=== PATIENT | male | born 1950 | race Caucasian/White ===

== ENCOUNTER → 2016-05-28 | Outpatient (CLI) | payer OTHER ==
[2016-05-28 15:49] LABS: THYROID STIMULATING HORMONE 2.72 uIu/ml (0.300-4.500)
== END | disposition home or self-care (01) ==
LOC: C.LAB1850 13:03
PROVIDERS: ATTEND Internal Medicine Endocrinology, Diabetes & Metabolism
DX: E03.9 Hypothyroidism, unspecified (principal)

== ENCOUNTER 2021-04-18 17:31 | Inpatient (IN) ==
[2021-04-18] MEDS ORDERED: SODIUM CHLORIDE 0.9% 1000ML 1,000 ML IV SCH ×2 (18:15→22:59)
--- NOTE | 2021-04-18 18:21 | XRay Report ---
XR chest 1V portable CLINICAL HISTORY: SEPSIS TECHNIQUE: Single frontal radiograph of the chest was obtained. Comparison: None available at the time of this dictation. FINDINGS: No lines and tubes are seen. Calcified aortic knob is seen. Airspace opacities are seen most prominen t in the left lower lung and right upper lung. No evidence of pleural effusion or pneumothorax. IMPRESSION: Multifocal airspace opacities may represent atelectasis, pneumonia, and/or aspiration. ACT 112: Negative or not required by law. Electronically signed by: Arpit Nguyen M.D. 04/18/2021 6:20 PM
[2021-04-18 18:31] LABS: Basophils # (auto) 0.02 K/uL (0-0.2); Basophils % (auto) 0.2 %; Eosinophils # (auto) 0.01 K/uL (0-0.5); Eosinophils % (auto) 0.1 %; Hematocrit (blood only) 45.7 % (42-52); Hemoglobin 15.8 g/dL (14.0-18.0); Immature Granulocytes # (auto) 0.08 K/uL (0.00-0.02); Immature Granulocytes % (auto) 0.6 %; Lymphocytes # (auto) 1.02 K/uL (1.2-3.4); Lymphocytes % (auto) 8.1 %; Mean Corpuscular Hemoglobin 32.9 pg (25-34); Mean Corpuscular Hgb Conc 34.6 g/dL (32-36); Mean Corpuscular Volume 95.2 fL (80-100); Mean Platelet Volume 10.1 fL (7.4-10.4); Monocytes # (auto) 0.63 K/uL (0.11-0.59); Neutrophils # (auto) 10.77 K/uL (1.4-6.5); Platelet Count 498 K/uL (130-400); RDW Coefficient of Variation 13.4 % (11.5-14.5); RDW Standard Deviation 46.6 fL (36.4-46.3); White Blood Count 12.53 K/uL (4.8-10.8)
--- NOTE | 2021-04-18 18:31 | Emergency Department Note ---
History of Present Illness General Chief complaint: Cardiac Assessment Stated complaint: COVID+, ABDOMINAL PAIN, PNEUMONIA Time Seen by Provider: 04/18/21 18:03 History of Present Illness Maximum Pain Intensity: 6 70-year-old male presents to the ED with a chief complaint of shortness of breath. Patient reports that his symptoms started after his hospitalization from his gallbladder surgery on April 06. He states that he was seen there 2 days ago at [facility] and told he had Covid. He reports some nausea and a cough and a runny nose. He states that he normally uses CPAP at home. He denies being a current smoker. He reports generalized malaise and weakness. Nothing makes it better. Home Medications Medication Instructions Recorded Confirmed Type allopurinol 300 mg tablet 300 mg PO DAILY tab 01/25/19 02/01/19 History aspirin 81 mg tablet,delayed 81 mg PO DAILY tab 01/25/19 02/01/19 History release atorvastatin 20 mg tablet 20 mg PO DAILY #30 tab 01/25/19 02/01/19 History fenofibrate nanocrystallized 145 145 mg PO DAILY #90 tab 01/25/19 02/01/19 History mg tablet fexofenadine 180 mg tablet 180 mg PO DAILY tab 01/25/19 02/01/19 History fluticasone propionate 50 2 sprays INTRANASAL DAILY gm 01/25/19 02/01/19 History mcg/actuation nasal spray,suspension levothyroxine 175 mcg tablet 175 mcg PO .COMPLEX tab 01/25/19 02/01/19 History (Synthroid) metoprolol tartrate 100 mg tablet 100 mg PO BID tab 01/25/19 02/01/19 History omeprazole 20 mg tablet,delayed 20 mg PO DAILY tab 01/25/19 02/01/19 History release duloxetine 60 mg capsule,delayed 60 mg PO DAILY 02/01/19 02/01/19 History release sildenafil 100 mg tablet 100 mg PO DAILY PRN 02/01/19 02/01/19 History sulindac 200 mg tablet 200 mg PO BID 02/01/19 02/01/19 History Allergies Allergy/AdvReac Type Severity Reaction Status Date / Time No Known Drug Allergies Allergy Verified 02/01/19 11:12 Past Med/Surg History Social History Smoking Status: Never smoker Preferred Language: Ukrainian Feels Safe at Home: Yes Review of Systems A total of 10 systems reviewed and were otherwise negative Physical Exam Vital Signs Vital Signs - 24 hr 04/18/21 17:47 04/18/21 18:04 04/18/21 18:30 Temperature 37.8 C H Temperature Source Temporal Artery Scan Pulse Rate 119 H 118 H Pulse Rate from SpO2 Sensor 118 H Pulse Rhythm Regular Pulse Strength Normal Respiratory Rate 24 22 24 Respiratory Effort / Characteristics Non-Labored Spontaneous Short of Breath Respiratory Depth Normal Shallow Respiratory Pattern Regular Regular Blood Pressure 157/95 H Blood Pressure Mean 115 Blood Pressure Position Sitting Pulse Oximetry 88 L 95 92 Oxygen Delivery Method Room Air Nasal Cannula Nasal Cannula Oxygen Flow Rate 4 4 Sepsis Recent Fever Within 48 Hours No Sepsis New/Unexplained Change in Mental Status No Sepsis Action Taken by Nursing No Action Required 04/18/21 19:00 Temperature Temperature Source Pulse Rate 106 H Pulse Rate from SpO2 Sensor Pulse Rhythm Pulse Strength Respiratory Rate 24 Respiratory Effort / Characteristics Respiratory Depth Respiratory Pattern Blood Pressure Blood Pressure Mean Blood Pressure Position Pulse Oximetry 93 Oxygen Delivery Method Nasal Cannula Oxygen Flow Rate 4 Sepsis Recent Fever Within 48 Hours Sepsis New/Unexplained Change in Mental Status Sepsis Action Taken by Nursing CONSTITUTIONAL/VITAL SIGNS: Reviewed / noted above. GENERAL: Non-toxic in appearance. INTEGUMENTARY: Warm, dry, and [place]. HEAD: Normocephalic. EYES: without scleral icterus or trauma. ENT/OROPHARYNX: clear and moist. LYMPHADENOPATHY/NECK: Is supple without lymphadenopathy or meningismus. RESPIRATORY: Mild bilateral crackles to auscultation bilaterally. Mild increased work of breathing. CARDIOVASCULAR: Regular rate and rhythm. GI/ABDOMEN: Soft and nontender. No organomegaly or pulsatile mass. EXTREMITIES: Warm and well perfused. BACK: No CVA tenderness. NEUROLOGICAL: Intact without focal deficits. PSYCHIATRIC: normal affect. MUSCULOSKELETAL: Normally developed with good muscle tone. TRIAGE NURSING DOCUMENTATION REVIEWED. Medical Decision Making Differential Diagnosis The differential was considered includes acute myocardial infarction, acute coronary syndrome, myocarditis, pericarditis, pericardial effusions /tamponad, esophageal perforation, pulmonary embolism, pneumonia, pneumothorax, cardiomyopathy, congestive heart, anemia , COPD/asthma exacerbation. Medical Records Attestation: I reviewed the patient's medical records. Home Medications Current Medication List: was personally reviewed by me Laboratory Data Attestation: I reviewed the patient's lab results. Result diagrams: 04/18/21 18:08 04/18/21 19:06 Lab Results 04/18/21 04/18/21 04/18/21 Range/Units 18:08 18:08 18:08 WBC 12.53 H (4.8-10.8) K/uL RBC 4.80 (4.7-6.1) M/uL Hgb 15.8 (14.0-18.0) g/dL Hct 45.7 (42-52) % MCV 95.2 (80-100) fL MCH 32.9 (25-34) pg MCHC 34.6 (32-36) g/dL RDW Std Deviation 46.6 H (36.4-46.3) fL RDW Coeff of [place] 13.4 (11.5-14.5) % Plt Count 498 H (130-400) K/uL MPV 10.1 (7.4-10.4) fL Immature Gran % (Auto) 0.6 % Neut % (Auto) 86.0 % Lymph % (Auto) 8.1 % [place] % (Auto) 5.0 % Eos % (Auto) 0.1 % Baso % (Auto) 0.2 % Neut # (Auto) 10.77 H (1.4-6.5) K/uL Lymph # (Auto) 1.02 L (1.2-3.4) K/uL [place] # (Auto) 0.63 H (0.11-0.59) K/uL Eos # (Auto) 0.01 (0-0.5) K/uL Baso # (Auto) 0.02 (0-0.2) K/uL Immature Gran # (Auto) 0.08 H (0.00-0.02) K/uL PT Cancelled INR Cancelled APTT Cancelled PTT Ratio Cancelled Sodium 136 (136-145) mmol/L Potassium (3.5-5.1) mmol/L Chloride 105 (98-107) mmol/L Carbon Dioxide 21 (21-32) mmol/L Anion Gap 10.0 (3-11) BUN 24 H (7-18) mg/dl Creatinine 1.34 (0.6-1.4) mg/dl Est Cr Clr Drug Dosing 56.2 ml/min Est GFR ( Amer) 62.6 ml/min Est GFR (Non-Af Amer) 54.1 ml/min BUN/Creatinine Ratio 17.9 (10-20) Glucose 193 H (70-99) mg/dl Lactate (0.4-2.0) mmol/L Calcium 9.5 (8.5-10.1) mg/dl Magnesium (1.8-2.4) mg/dl Total Bilirubin 0.6 (0.2-1) mg/dl AST (15-37) U/L ALT 46 (12-78) Alkaline Phosphatase 60 (45-117) U/L Troponin I < 0.015 (0-0.045) ng/ml Total Protein 8.2 (6.4-8.2) gm/dl Albumin 2.7 L (3.4-5.0) gm/dl Globulin 5.5 H (2.5-4.0) gm/dl Albumin/Globulin Ratio 0.5 L (0.9-2) Procalcitonin (0-0.5) ng/ml SARS-CoV-2, RNA, NAAT (NEGATIVE) 04/18/21 04/18/21 04/18/21 Range/Units 18:08 18:08 18:40 WBC (4.8-10.8) K/uL RBC (4.7-6.1) M/uL Hgb (14.0-18.0) g/dL Hct (42-52) % MCV (80-100) fL MCH (25-34) pg MCHC (32-36) g/dL RDW Std Deviation (36.4-46.3) fL RDW Coeff of Lennox (11.5-14.5) % Plt Count (130-400) K/uL MPV (7.4-10.4) fL Immature Gran % (Auto) % Neut % (Auto) % Lymph % (Auto) % [place] % (Auto) % Eos % (Auto) % Baso % (Auto) % Neut # (Auto) (1.4-6.5) K/uL Lymph # (Auto) (1.2-3.4) K/uL [place] # (Auto) (0.11-0.59) K/uL Eos # (Auto) (0-0.5) K/uL Baso # (Auto) (0-0.2) K/uL Immature Gran # (Auto) (0.00-0.02) K/uL PT INR APTT PTT Ratio Sodium (136-145) mmol/L Potassium (3.5-5.1) mmol/L Chloride (98-107) mmol/L Carbon Dioxide (21-32) mmol/L Anion Gap (3-11) BUN (7-18) mg/dl Creatinine (0.6-1.4) mg/dl Est Cr Clr Drug Dosing ml/min Est GFR ( Amer) ml/min Est GFR (Non-Af Amer) ml/min BUN/Creatinine Ratio (10-20) Glucose (70-99) mg/dl Lactate 3.2 H* (0.4-2.0) mmol/L Calcium (8.5-10.1) mg/dl Magnesium (1.8-2.4) mg/dl Total Bilirubin (0.2-1) mg/dl AST (15-37) U/L ALT (12-78) Alkaline Phosphatase (45-117) U/L Troponin I (0-0.045) ng/ml Total Protein (6.4-8.2) gm/dl Albumin (3.4-5.0) gm/dl Globulin (2.5-4.0) gm/dl Albumin/Globulin Ratio (0.9-2) Procalcitonin 0.26 (0-0.5) ng/ml SARS-CoV-2, RNA, NAAT POSITIVE A* (NEGATIVE) 04/18/21 Range/Units 19:06 WBC (4.8-10.8) K/uL RBC (4.7-6.1) M/uL Hgb (14.0-18.0) g/dL Hct (42-52) % MCV (80-100) fL MCH (25-34) pg MCHC (32-36) g/dL RDW Std Deviation (36.4-46.3) fL RDW Coeff of [place]ox (11.5-14.5) % Plt Count (130-400) K/uL MPV (7.4-10.4) fL Immature Gran % (Auto) % Neut % (Auto) % Lymph % (Auto) % [place] % (Auto) % Eos % (Auto) % Baso % (Auto) % Neut # (Auto) (1.4-6.5) K/uL Lymph # (Auto) (1.2-3.4) K/uL [place] # (Auto) (0.11-0.59) K/uL Eos # (Auto) (0-0.5) K/uL Baso # (Auto) (0-0.2) K/uL Immature Gran # (Auto) (0.00-0.02) K/uL PT INR APTT PTT Ratio Sodium (136-145) mmol/L Potassium 3.1 L (3.5-5.1) mmol/L Chloride (98-107) mmol/L Carbon Dioxide (21-32) mmol/L Anion Gap (3-11) BUN (7-18) mg/dl Creatinine (0.6-1.4) mg/dl Est Cr Clr Drug Dosing ml/min Est GFR ( Amer) ml/min Est GFR (Non-Af Amer) ml/min BUN/Creatinine Ratio (10-20) Glucose (70-99) mg/dl Lactate (0.4-2.0) mmol/L Calcium (8.5-10.1) mg/dl Magnesium 1.6 L (1.8-2.4) mg/dl Total Bilirubin (0.2-1) mg/dl AST 50 H (15-37) U/L ALT (12-78) Alkaline Phosphatase (45-117) U/L Troponin I (0-0.045) ng/ml Total Protein (6.4-8.2) gm/dl Albumin (3.4-5.0) gm/dl Globulin (2.5-4.0) gm/dl Albumin/Globulin Ratio (0.9-2) Procalcitonin (0-0.5) ng/ml SARS-CoV-2, RNA, NAAT (NEGATIVE) Imaging Data Radiologist's Impression: Chest X-Ray 04/18/21 18:04 XR chest 1V portable CLINICAL HISTORY: SEPSIS TECHNIQUE: Single frontal radiograph of the chest was obtained. Comparison: None available at the time of this dictation. FINDINGS: No lines and tubes are seen. Calcified aortic knob is seen. Airspace opacities are seen most prominent in the left lower lung and right upper lung. No evidence of pleural effusion or pneumothorax. IMPRESSION: Multifocal airspace opacities may represent atelectasis, pneumonia, and/or aspiration. ACT 112: Negative or not required by law. Electronically signed by: Arpit Nguyen M.D. 04/18/2021 6:20 PM ECG Data Attestation: I personally reviewed and interpreted this ECG as follows: Additional Comments: Twelve-lead EKG: Per my interpretation showsA sinus rhythm at a rate of 112. There is a prolonged QTC. No ST elevation. No PVCs. MDM Narrative 70-year-old male presents to the ED with a chief complaint of shortness of breath and generalized malaise and weakness as well as a cough and runny nose and some nausea. Symptoms started 8 or 9 days ago. His saturations were 88% on room air. He does not use oxygen at home. Tachycardic at 119. Temperature 37.8. Chest x-ray shows bilateral pneumonia. EKG shows a sinus rhythm. White blood cell count is 12.5. BUN is 24. Lactic acid is 3.2. Troponin was negative. Covid swab is positive. Procalcitonin is negative. The patient was treated with IV fluids, IV Decadron and IV cefepime empirically. He will be seen by the hospitalist for further inpatient evaluation and care. Impression & Plan COVID-19, Pneumonia, Hypoxia Discharge Plan Visit Data Chief Complaint: Cardiac Assessment Stated Complaint: COVID+, ABDOMINAL PAIN, PNEUMONIA ED Provider: Dov Rodriguez Discharge Problem: COVID-19, Pneumonia, Hypoxia Patient Disposition: Being Evaluated by Hospitalist Forms Stand Alone Forms: My [facility] Emergency Department, Important Visit Information Prescriptions Prescriptions: No Action fexofenadine 180 mg tablet 180 mg PO DAILY RF: 0 allopurinol 300 mg tablet 300 mg PO DAILY RF: 0 aspirin 81 mg tablet,delayed release (DR/EC) 81 mg PO DAILY RF: 0 atorvastatin 20 mg tablet 20 mg PO DAILY Qty: 30 RF: 0 fenofibrate nanocrystallized 145 mg tablet 145 mg PO DAILY Qty: 90 RF: 0 fluticasone propionate 50 mcg/actuation spray,suspension 2 sprays intranasal DAILY RF: 0 metoprolol tartrate 100 mg tablet 100 mg PO BID RF: 0 omeprazole 20 mg tablet,delayed release (DR/EC) 20 mg PO DAILY RF: 0 levothyroxine [Synthroid] 175 mcg tablet 175 mcg PO .COMPLEX RF: 0 duloxetine 60 mg capsule,delayed release(DR/EC) 60 mg PO DAILY RF: 0 sildenafil 100 mg tablet 100 mg PO DAILY PRNRF: 0 sulindac 200 mg tablet 200 mg PO BID RF: 0 Referrals Referrals: Jamie Ratliff MD [Primary Care Provider] -
[2021-04-18 18:54] LABS: Alanine Aminotransferase 46 (12-78); Albumin Level 2.7 gm/dl (3.4-5.0); BUN Creatinine Ratio 17.9 (10-20); Blood Urea Nitrogen 24 mg/dl (7-18); Calcium 9.5 mg/dl (8.5-10.1); Carbon Dioxide 21 mmol/L (21-32); Chloride 105 mmol/L (98-107); Creatinine Clr Calc Pharmacy 56.2 ml/min; Est GFR (African American) 62.6 ml/min; Est GFR (Non-African American) 54.1 ml/min; Glucose 193 mg/dl (70-99); Sodium 136 mmol/L (136-145)
[2021-04-18 18:56] LABS: Albumin Globulin Ratio 0.5 (0.9-2); Alkaline Phosphatase 60 U/L (45-117); Bilirubin,Total 0.6 mg/dl (0.2-1); Globulin 5.5 gm/dl (2.5-4.0); Total Protein 8.2 gm/dl (6.4-8.2); Troponin I < 0.015 ng/ml (0-0.045)
[2021-04-18] MEDS ORDERED: CEFEPIME 2,000 MG/20 ML VIAL IV STA (19:16)
[2021-04-18 19:29] LABS: Potassium 3.1 mmol/L (3.5-5.1)
[2021-04-18] MEDS ORDERED: dexAMETHasone**PF** 10 MG/ML VIAL IV ONE (19:32)
[2021-04-18 19:34] LABS: Magnesium 1.6 mg/dl (1.8-2.4)
[2021-04-18 20:27] LABS: INR 1.1 (0.9-1.1); Partial Thromboplastin Ratio 1.2; Partial Thromboplastin Time 32.1 Seconds (21.0-31.0); Prothrombin Time 10.7 Seconds (9.0-12.0)
[2021-04-18] MEDS ORDERED: POTASSIUM CHLORIDE CRTAB 20 MEQ TABCR PO STA (21:24)
[2021-04-18] MEDS ORDERED: REMDESIVIR 200 MG in SODIUM CHLORIDE 0.9% 210 ML IV STA (21:24)
[2021-04-18] MEDS ORDERED: CONSULT PHARMACY STA (21:27)
[2021-04-18] MEDS ORDERED: MAGNESIUM SULFATE / D5W 1 GM/100 ML BAG IV STA (22:22)
[2021-04-18] MEDS ORDERED: POTASSIUM CHLORIDE / WTR 10 MEQ/100 ML PLCT IV STA (22:23)
[2021-04-18] MEDS ORDERED: METOPROLOL TARTRATE 1 MG/ML VIAL IV STA (22:24)
[2021-04-18] MEDS ORDERED: ONDANSETRON INJ 2 MG/ML 2 ML VIAL IV PRN (22:59)
[2021-04-18] MEDS ORDERED: NITROGLYCERIN SL 0.4 MG/TAB TAB SL PRN (22:59)
[2021-04-18] MEDS ORDERED: ALBUTEROL HFA 8 GM INHALER INH PRN (22:59)
[2021-04-18] MEDS ORDERED: oxyCODONE HCL IR 5 MG TAB (IMMEDIATE RELEASE) PO PRN (22:59)
[2021-04-18] MEDS ORDERED: ACETAMINOPHEN 325 MG TAB PO PRN (22:59)
--- NOTE | 2021-04-18 23:59 | History and Physical Report ---
DATE OF ADMISSION: 04/18/2021. CHIEF COMPLAINT: Shortness of breath. HISTORY OF PRESENT ILLNESS: This is a 70-year-old male with past medical history significant for type 2 diabetes, hypothyroidism, hyperlipidemia, allergic rhinitis, severe obstructive sleep apnea, atherosclerosis of aorta, hypertension, history of thoracic aortic aneurysm, history of CAD, GERD, chronic kidney disease stage III, gout arthropathy, spondylosis, depression, who comes because of shortness of breath. The patient states since 6-7 days he is having symptoms with cough, shortness of breath, nausea, vomiting, some diarrhea, mild headache, body aches, feeling weak, not getting better. He came to the ER and was hypoxic at 88% on room air. Chest x-ray shows mild COVID pneumonia and the COVID test came back positive. He was vaccinated with Vicente and Vicente vaccine in July of 2020. Did not receive a booster. He is very hard of hearing and somewhat poor historian. Denies any blurred visions. Has some runny nose, has lot of sore throat. He says appetite is down and he has some pain in the throat. Denies any chest pain, no abdominal pain. Normal bladder movements. ALLERGIES: No known drug allergies. PAST MEDICAL HISTORY: As mentioned above. PAST SURGICAL HISTORY: Colonoscopy, back surgery, open right knee surgery, partial removal of colon for perforated diverticulitis, revision of colostomy. MEDICATIONS: The patient is on allopurinol 300 mg p.o. daily, aspirin 81 mg p.o. daily, atorvastatin 40 mg p.o. daily, duloxetine 60 mg p.o. daily, fenofibrate 145 mg p.o. daily, fexofenadine 180 mg p.o. daily, Flonase 2 sprays intranasal daily, levothyroxine 175 mcg p.o. daily, metformin 1000 mg p.o. b.i.d., metoprolol tartrate 100 mg p.o. b.i.d., omeprazole 20 mg p.o. daily, oxycodone 5 mg p.o. q. 4 hours p.r.n., sulindac 200 mg p.o. b.i.d. FAMILY HISTORY: Significant for father had prostate cancer; paternal grandmother has diabetes; sister has diabetes, mother has [place], hypertension; father has stroke. SOCIAL HISTORY: . Smoked 1 pack a day for 5 years. Chews one can every 3 days. Alcohol, seems to be as per Epic two to three beers daily in the evening. No drug use. REVIEW OF SYSTEMS: As per HPI. Rest of the review of systems is negative. PHYSICAL EXAMINATION: GENERAL: The patient is of moderate build, not in acute distress. VITAL SIGNS: Temperature 37.8, pulse 89, respiratory rate 24, blood pressure 162/89, oxygen 93% on 6 liters. HEENT: No pallor, no icterus. Pupils equal, round and reactive to light. Oral mucosa moist. NECK: No JVD, no neck masses. CARDIOVASCULAR: S1 and S2 heard. Regular rate and rhythm. No murmur, no gallop. RESPIRATORY SYSTEM: Normal AP diameter. No accessory muscle use. No wheezing, no crackles. ABDOMEN: Soft, bowel sounds present, nontender, no distention. CENTRAL NERVOUS SYSTEM: Cranial nerves II-XII grossly intact, nonfocal. EXTREMITIES: No edema, no erythema. LABORATORY DATA: WBC 12.5, hemoglobin 15.8, hematocrit 45.7, platelets 498, PT 10.7, INR 1.1, APTT 32.1. Sodium 136, potassium 3.1, chloride 105, bicarbonate 21, BUN 24, creatinine 1.3, serum glucose 193. Lactate 1.9, calcium 9.5, magnesium 1.6, total bilirubin 0.6, AST 50, ALT 46, alkaline phosphatase 60. Troponin I less than 0.015. Procalcitonin 0.2. SARS-CoV-2 RNA positive. IMAGING DATA: Chest x-ray, multiple airspace opacities, might represent atelectasis, pneumonia, and/or aspiration. EKG: Sinus tachycardia at a rate of 112. Nonspecific ST abnormalities. QTc of 625. ASSESSMENT AND PLAN: This is a 70-year-old male who presents with COVID pneumonia. 1. COVID pneumonia: Symptoms are going on for like about a week. Meets criteria for remdesivir and steroids, will be started. Follow the remdesivir labs and also supportive care, oxygenation, closely monitor in the tele floor. Will follow the CRP levels in the a.m.Empiric abx Zosyn and doxycycline for any superimposed bacterial infection.( Patient is on po abx for his recent gall bladder surgery-last day of abx apr 19) 2. History of diabetes: Holding metformin. Place him on insulin sliding scale. Follow the blood sugars. The patient is on steroids. 3. History of hypothyroidism: On Synthroid. 4. History of hypertension: On metoprolol. The patient will be continued. 5. History of coronary artery disease: On beta mani, statin, and aspirin. 6.Prolonged QTc. Avoid QT prolonging drugs. Follow repeat EKG in the a.m. 6. Hypomagnesemia and hypokalemia: Will replace. 7. Gout: Continue allopurinol. 8. Hyperlipidemia: Continue statin. 9. Depression: Continue duloxetine. 10. Gastroesophageal reflux disease: Continue omeprazole. 11. Chronic kidney disease stage III: Will follow the labs. 12. Sleep apnea: On CPAP at bedtime. 13. Aortic aneurysm:On echo in March 2021, small aortic aneurysm in the ascending aorta, 4 cm. EF is 60% to 65%. 14. History of traumatic injury with lumbar compression fracture, status post spine surgery in December 2009. Continue his home pain medication. Hold sulindac. 15. 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 16. History of partial colectomy secondary to diverticulitis. 17. Alcoholism: As per Epic, drinks two to three beers daily. No hx of withdrawal as per patinet.. Place on p.o. thiamine and MVI. Monitor for any withdrawals. 18. Deep venous thrombosis prophylaxis: On Lovenox. DISPOSITION: Closely monitor in the tele floor. Level 1 full code. Expect to discharge home and follow with family doctor. Job ID: [id number] [facility]
[2021-04-19] MEDS ORDERED: CARBOHYDRATES FOR HYPOGLYCEMIA PO PRN (00:15)
[2021-04-19] MEDS ORDERED: GLUCAGON FOR INJ 1 MG VIAL IM PRN (00:15)
[2021-04-19] MEDS ORDERED: GLUCOSE 40% GEL 15 GM TUBE PO PRN (00:15)
[2021-04-19] MEDS ORDERED: DEXTROSE 50% 50 ML SYRINGE IV PRN (00:15)
[2021-04-19] MEDS ORDERED: GLUCOSE 10 TABS/TUBE PO PRN (00:15)
[2021-04-19] MEDS ORDERED: PIPERACILL/TAZOBAC CONSULT ACTIVE PRN (02:04)
[2021-04-19] MEDS: DOXYCYCLINE HYCLATE 100 MG in DEXTROSE 5% 100 ML IV SCH ×2 (02:27→12:24)
[2021-04-19] MEDS: SODIUM CHLORIDE 0.9% 10ML FLUSH IV SCH ×2 (02:27→21:27)
[2021-04-19] MEDS ORDERED: PIPERACILLIN/TAZOBACTAM 4.5 GM in DEXTROSE 5% 100 ML IV ONE (02:30)
[2021-04-19] MEDS: POTASSIUM CHLORIDE / WTR 10 MEQ/100 ML PLCT IV SCH ×2 (04:35→05:56)
[2021-04-19] MEDS: MAGNESIUM SULFATE / D5W 1 GM/100 ML BAG IV SCH ×2 (05:22→06:12)
[2021-04-19] MEDS: LEVOTHYROXINE SODIUM 175 MCG TABLET PO SCH (06:12)
[2021-04-19 06:26] LABS: Basophils # (auto) 0.02 K/uL (0-0.2); Basophils % (auto) 0.3 %; Hematocrit (blood only) 36.7 % (42-52); Hemoglobin 12.1 g/dL (14.0-18.0); Immature Granulocytes # (auto) 0.05 K/uL (0.00-0.02); Immature Granulocytes % (auto) 0.8 %; Lymphocytes # (auto) 0.68 K/uL (1.2-3.4); Lymphocytes % (auto) 10.6 %; Mean Corpuscular Hemoglobin 31.8 pg (25-34); Mean Corpuscular Volume 96.6 fL (80-100); Mean Platelet Volume 10.2 fL (7.4-10.4); Monocytes # (auto) 0.18 K/uL (0.11-0.59); Monocytes % (auto) 2.8 %; Neutrophils % (auto) 85.5 %; Platelet Count 385 K/uL (130-400); RDW Coefficient of Variation 13.7 % (11.5-14.5); RDW Standard Deviation 48.6 fL (36.4-46.3); White Blood Count 6.43 K/uL (4.8-10.8)
[2021-04-19 07:39] LABS: Albumin Level 2.4 gm/dl (3.4-5.0); BUN Creatinine Ratio 16.3 (10-20); Bilirubin Direct 0.2 mg/dl (0-0.2); Bilirubin,Total 0.4 mg/dl (0.2-1); Calcium 8.4 mg/dl (8.5-10.1); Creatinine Clr Calc Pharmacy 83.3 ml/min; Est GFR (African American) 91.4 ml/min; Est GFR (Non-African American) 78.9 ml/min; Magnesium 3.3 mg/dl (1.8-2.4); Potassium 3.4 mmol/L (3.5-5.1); Total Protein 7.2 gm/dl (6.4-8.2)
[2021-04-19 07:42] LABS: Estimated Average Glucose 140 mg/dl; Hemoglobin A1C 6.5 % (4.5-5.6)
[2021-04-19 07:50] LABS: Beta-Hydroxybutyrate 5.84 mg/dl (0.2-2.81)
[2021-04-19] MEDS ORDERED: CEFEPIME 2,000 MG in SYRINGE 0 ML IV SCH (08:00)
[2021-04-19] MEDS: FLUTICASONE FUROATE 100MCG 14 PUFFS/INHALER INH SCH (08:35)
[2021-04-19] MEDS: ATORVASTATIN 40 MG TAB PO SCH (08:36)
[2021-04-19] MEDS: CEROVITE ADV FORMULA TAB PO SCH (08:36)
[2021-04-19] MEDS: allopurinoL 300 MG TAB PO SCH (08:36)
[2021-04-19] MEDS: PANTOprazole 40 MG TAB PO SCH (08:36)
[2021-04-19] MEDS: FENOFIBRATE NANOCRYSTALLIZED 145 MG TABLET PO SCH (08:36)
[2021-04-19] MEDS: dexAMETHasone 6 MG in SYRINGE 0 ML IV SCH (08:36)
[2021-04-19] MEDS: ASPIRIN 81 MG ECTAB PO SCH (08:36)
[2021-04-19] MEDS: METOPROLOL TARTRATE 100 MG TAB PO SCH ×2 (08:36→21:26)
[2021-04-19] MEDS: ENOXAPARIN INJ 40 MG/0.4 ML SYR SQ SCH (08:36)
[2021-04-19] MEDS: FEXOFENADINE HCL 180 MG TAB PO SCH (08:36)
[2021-04-19] MEDS: THIAMINE HCL 100 MG TAB PO SCH (08:36)
[2021-04-19] MEDS: DULoxetine HCL 60 MG CAP PO SCH (08:36)
[2021-04-19] MEDS: PIPERACILLIN/TAZOBACTAM 3.375 GM in DEXTROSE 5% 100 ML IV SCH ×2 (08:37→18:06)
[2021-04-19] MEDS: FLUTICASONE PROPIONATE NA SPR 16 GM BTL SCH (08:37)
[2021-04-19] MEDS: INSULIN ASPART PER UNIT SC SCH ×4 (08:39→21:26)
--- NOTE | 2021-04-19 16:12 | Electrocardiogram Report ---
Test Reason : Blood Pressure : / mmHG Vent. Rate : 112 BPM Atrial Rate : 112 BPM P-R Int : 174 ms QRS Dur : 082 ms QT Int : 458 ms P-R-T Axes : 041 -21 022 degrees QTc Int : 625 ms Sinus tachycardia Nonspecific ST and T wave abnormality Prolonged QT Abnormal ECG No previous ECGs available Confirmed by Rhett Powell ([id number]) on 04/19/2021 4:11:55 PM Referred By: REFERRED SELF Confirmed By:Rhett Powell
--- NOTE | 2021-04-19 16:17 | Electrocardiogram Report ---
Test Reason : Blood Pressure : / mmHG Vent. Rate : 096 BPM Atrial Rate : 096 BPM P-R Int : 178 ms QRS Dur : 084 ms QT Int : 376 ms P-R-T Axes : 030 -20 -17 degrees QTc Int : 475 ms Normal sinus rhythm T wave abnormality, consider inferior ischemia T wave abnormality, consider anterior ischemia Prolonged QT Abnormal ECG When compared with ECG of 18-APR-2021 17:59, (unconfirmed) T wave inversion now evident in Inferior leads T wave inversion now evident in Anterior leads Confirmed by Rhett Powell ([id number]) on 04/19/2021 4:17:22 PM Referred By: REFERRED SELF Confirmed By:Rhett Powell
--- NOTE | 2021-04-19 17:36 | Hospitalist Progress Note ---
Date of Service April 19, 2021 Assessment & Plan (1) Pneumonia due to COVID-19 virus: Plan: New infection since his operation and discharge from the hospital between and . Hypoxia present. Started on remdesivir and dexamethasone. Continue these therapies and supportive care as needed. Patient unable to prone secondary to current surgical site. (2) Post-operative state: Plan: Recently completed a 6-day course of levofloxacin 750 mg p.o. daily and Augmentin twice daily per his surgeon, Dr. Vic Lacey-general surgeon out of [facility]. He appears to be status post laparoscopic cholecystectomy, date unknown with MARIBEL drains in place x3. reports touching base with surgeon outpatient office and they requested a follow-up on Thursday. Suggest contacting surgical office on-call doc for guidance on MARIBEL drain management versus removal. Currently there is no fever or signs of abdominal pain or infection. He remains on Zosyn and doxycycline. (3) DMII (diabetes mellitus, type 2): Plan: Chronic, A1c of 6.5 reflects good control. Continue insulin per inpatient protocol. Currently euglycemic. (4) Depression: Plan: Chronic, stable, continue duloxetine per home regimen. (5) SUMMER (obstructive sleep apnea): Plan: CPAP qHS (6) DVT prophylaxis: Plan: Lovenox Full code Disposition-to home when medically stable and hypoxia has resolved. Norma Mott DO [facility] Hospitalist Admission and Anticipated Discharge Date Admission Date: April 18, 2021 Subjective Zentz [id number] man recently hospitalized for acute cholecystitis status post laparoscopic cholecystectomy worsening symptoms admitted for COVID- pneumonia. He appears pale but reports feeling better today. Reports his breathing is improved Denies any abdominal pain I contacted his to clarify instructions from his surgeon, Vic Cornejo from [facility], [place], [place], states patient was on levofloxacin 750 mg daily x7 days, Augmentin twice da emily x7 days and that he had completed 6 days prior to admission to [facility]. She states he had a postoperative follow-up in the office by Dr. Lacey who decided to leave the drains in and sent him back for imaging and blood work at the ER. He was sent home from the [facility] and the following day was admitted to [facility]. states surgical nourished contacted her today and set up follow-up for patient for next Thursday has been made no mention of MARIBEL drains status Review of Systems Review of Systems: All systems were reviewed and negative except as indicated above. Physical Exam Physical Exam: CONSTITUTIONAL: WNWD, vitals as above, generally ill- appearing, NAD EYES: normal conjunctivae, no scleral icterus ENT: external ear and nose normal, MMM NECK: trachea midline, RESPIRATORY: clear to auscultation bilaterally, no crackles, rales or wheezes, normal respiratory effort CARDIOVASCULAR: regular rate and rhythm, S1 and 2 heard without murmurs, gallops or rubs, no JVD, no peripheral edema CHEST: inspection of chest was normal GASTROINTESTINAL: soft, nontender, protuberant, nondistended, no guarding, +MARIBEL drain x [address] with crusting around the insertion site MUSCULOSKELETAL: strength 5/5 throughout, head is normocephalic and atraumatic, neck supple, normal palpation of chest wall without tenderness SKIN: warm and dry NEUROLOGIC: CN 2-12 grossly intact, no sensory deficit, normal cognition, normal speech, no tremor PSYCHIATRIC: alert cooperative and oriented to person, place and time. Results & Data Results & Data ([facility]) Vital Signs (Past 12 Hours) Vital Signs Temp Pulse Resp BP Pulse Ox 04/19/21 15:19 36.7 C 77 20 132/86 94 04/19/21 11:59 91 04/19/21 11:46 94 04/19/21 11:08 36.9 C 72 18 146/87 H 95 04/19/21 07:20 36.9 C 86 20 145/85 H 91 Laboratory Results Short CBC 04/18/21 04/19/21 Range/Units 18:08 05:40 WBC 12.53 H 6.43 (4.8-10.8) K/uL Hgb 15.8 12.1 L D (14.0-18.0) g/dL Hct 45.7 36.7 L (42-52) % Plt Count 498 H 385 (130-400) K/uL BMP 04/18/21 04/18/21 04/19/21 18:08 19:06 05:40 Sodium 136 135 L Potassium 3.1 L 3.4 L Chloride 105 103 Carbon Dioxide 21 21 BUN 24 H 16 Creatinine 1.34 0.98 D Glucose 193 H 365 H* Calcium 9.5 8.4 L Cardiac Enzymes 04/18/21 Range/Units 18:08 Troponin I < 0.015 (0-0.045) ng/ml Liver Function 04/18/21 04/18/21 04/19/21 Range/Units 18:08 19:06 05:40 Total Bilirubin 0.6 0.4 (0.2-1) mg/dl Direct Bilirubin 0.2 (0-0.2) mg/dl AST 50 H 42 H (15-37) U/L ALT 46 34 (12-78) Alkaline Phosphatase 60 48 (45-117) U/L Albumin 2.7 L 2.4 L (3.4-5.0) gm/dl Medications Administered Current Inpatient Medications Acetaminophen (Acetaminophen 325 Mg Tab) 650 mg PO Q4H PRN PRN Reason: Pain or Fever Stop: 05/18/21 22:58 Albuterol (Albuterol Hfa 8 Gm Inhaler) 2 puffs INH Q4H PRN PRN Reason: Shortness Of Breath Or Wheezin Stop: 05/18/21 22:58 Allopurinol (Allopurinol 300 Mg Tab) 300 mg PO DAILY SABRINA Stop: 05/19/21 08:59 Last Admin: 04/19/21 08:36 Dose: 300 mg Documented by: Aspirin (Aspirin 81 Mg Ectab) 81 mg PO DAILY SABRINA Stop: 05/19/21 08:59 Last Admin: 04/19/21 08:36 Dose: 81 mg Documented by: Atorvastatin Calcium (Atorvastatin 40 Mg Tab) 40 mg PO DAILY SABRINA Stop: 05/19/21 08:59 Last Admin: 04/19/21 08:36 Dose: 40 mg Documented by: Dextrose (Dextrose 50% 50 Ml Syringe) 25 - 50 ml IV UD PRN; Protocol PRN Reason: Hypoglycemia Protocol Stop: 05/19/21 00:14 Duloxetine HCl (Duloxetine Hcl 60 Mg Cap) 60 mg PO DAILY SABRINA Stop: 05/19/21 08:59 Last Admin: 04/19/21 08:36 Dose: 60 mg Documented by: Enoxaparin Sodium (Enoxaparin Inj 40 Mg/0.4 Ml Syr) 40 mg SQ Q24H SAB[facility]INA Stop: 05/19/21 08:59 Last Admin: 04/19/21 08:36 Dose: 40 mg Documented by: Fenofibrate (Fenofibrate Nanocrystallized 145 Mg Tablet) 145 mg PO DAILY [facility] Stop: 05/19/21 08:59 Last Admin: 04/19/21 08:36 Dose: 145 mg Documented by: Fexofenadine HCl (Fexofenadine Hcl 180 Mg Tab) 180 mg PO DAILY SABRINA Stop: 05/19/21 08:59 Last Admin: 04/19/21 08:36 Dose: 180 mg Documented by: Fluticasone Furoate (Fluticasone Furoate 100mcg 14 Puffs/Inhaler) 1 puffs INH QAM S[facility]INA Stop: 05/19/21 08:59 Last Admin: 04/19/21 08:35 Dose: 1 puffs Documented by: Fluticasone Propionate (Fluticasone Propionate Na Spr 16 Gm Btl) 2 sprays NA DAILY S[facility]INA Stop: 05/19/21 08:59 Last Admin: 04/19/21 08:37 Dose: 2 sprays Documented by: Glucagon (Glucagon For Inj 1 Mg Vial) 1 mg IM UD PRN; Protocol PRN Reason: Hypoglycemia Protocol Stop: 05/19/21 00:14 Glucose (Glucose 40% Gel 15 Gm Tube) 15 - 30 gm PO UD PRN; Protocol PRN Reason: Hypoglycemia Protocol Stop: 05/19/21 00:14 Glucose (Glucose 10 Tabs/Tube) 4 - 8 tabs PO UD PRN; Protocol PRN Reason: Hypoglycemia Protocol Stop: 05/19/21 00:14 Remdesivir 100 mg/ Sodium (Chloride) 250 mls @ 250 mls/hr IV Q24H [facility]; Protocol Stop: 04/22/21 20:59 Dexamethasone 6 mg/ Syringe 1.5 mls @ 1 mls/min IV DAILY SABRINA Stop: 04/29/21 08:59 Last Admin: 04/19/21 08:36 Dose: 1 mls/min Documented by: Doxycycline Hyclate 100 mg/ (Dextrose) 110 mls @ 50 mls/hr IV Q12H [facility] Stop: 04/26/21 00:00 Last Infusion: 04/19/21 14:29 Dose: Infused Documented by: Piperacillin Sod/Tazobactam (Sod 3.375 gm/ Dextrose) 115 mls @ 28.75 mls/hr IV Q8H [facility]; Protocol Stop: 04/26/21 09:59 Last Infusion: 04/19/21 12:24 Dose: Infused Documented by: Insulin Aspart (Insulin Aspart Per Unit) 0 units SC ACHS [facility] Stop: 05/19/21 07:29 Last Admin: 04/19/21 12:20 Dose: 5 units Documented by: Levothyroxine Sodium (Levothyroxine Sodium 175 Mcg Tablet) 175 mcg PO DAILYBB [facility] Stop: 05/19/21 06:29 Last Admin: 04/19/21 06:12 Dose: 175 mcg Documented by: Metoprolol Tartrate (Metoprolol Tartrate 100 Mg Tab) 100 mg PO BID [facility] Stop: 05/19/21 08:59 Last Admin: 04/19/21 08:36 Dose: 100 mg Documented by: Miscellaneous (Carbohydrates For Hypoglycemia ) 15 - 30 gm PO UD PRN PRN Reason: Hypoglycemia Treatment Stop: 05/19/21 00:14 Miscellaneous Information (Piperacill/Tazobac Consult Active) 1 ea N/A UD PRN PRN Reason: Consult Stop: 05/19/21 02:03 Multivitamins/Minerals (Cerovite Adv Formula Tab) [facility] Stop: 05/19/21 08:59 Last Admin: 04/19/21 08:36 Dose: 1 tab Documented by: Nitroglycerin (Nitroglycerin Sl 0.4 Mg/Tab Tab) 0.4 mg SL UD PRN PRN Reason: Chest Pain Stop: 05/18/21 22:58 Oxycodone HCl (Oxycodone Hcl Ir 5 Mg Tab (Immediate Release)) 5 mg PO Q6H PRN PRN Reason: Pain Stop: 05/02/21 22:58 Pantoprazole Sodium (Pantoprazole 40 Mg Tab) 40 mg PO DAILY [facility] Stop: 05/19/21 08:59 Last Admin: 04/19/21 08:36 Dose: 40 mg Documented by: Sodium Chloride (Sodium Chloride 0.9% 10ml Flush) 30 ml IV Q24H [facility] Stop: 04/22/21 23:00 Last Admin: 04/19/21 02:27 Dose: 30 ml Documented by: Thiamine HCl (Thiamine Hcl 100 Mg Tab) 100 mg PO QAM [facility] Stop: 05/19/21 08:59 Last Admin: 04/19/21 08:36 Dose: 100 mg Documented by:
[2021-04-19] MEDS: REMDESIVIR 100 MG in SODIUM CHLORIDE 0.9% 230 ML IV SCH (21:25)
[2021-04-20] MEDS: DOXYCYCLINE HYCLATE 100 MG in DEXTROSE 5% 100 ML IV SCH ×2 (00:48→13:00)
[2021-04-20] MEDS: PIPERACILLIN/TAZOBACTAM 3.375 GM in DEXTROSE 5% 100 ML IV SCH ×3 (02:57→18:26)
[2021-04-20] MEDS: LEVOTHYROXINE SODIUM 175 MCG TABLET PO SCH (05:59)
[2021-04-20 08:20] LABS: Hematocrit (blood only) 40.3 % (42-52); Hemoglobin 13.6 g/dL (14.0-18.0); Mean Corpuscular Hemoglobin 32.4 pg (25-34); Mean Corpuscular Hgb Conc 33.7 g/dL (32-36); Platelet Count 482 K/uL (130-400); RDW Coefficient of Variation 13.6 % (11.5-14.5); RDW Standard Deviation 47.9 fL (36.4-46.3); White Blood Count 8.68 K/uL (4.8-10.8)
[2021-04-20] MEDS: dexAMETHasone 6 MG in SYRINGE 0 ML IV SCH (08:30)
[2021-04-20] MEDS: ASPIRIN 81 MG ECTAB PO SCH (08:30)
[2021-04-20] MEDS: ATORVASTATIN 40 MG TAB PO SCH (08:30)
[2021-04-20] MEDS: DULoxetine HCL 60 MG CAP PO SCH (08:30)
[2021-04-20] MEDS: ENOXAPARIN INJ 40 MG/0.4 ML SYR SQ SCH (08:31)
[2021-04-20] MEDS: FENOFIBRATE NANOCRYSTALLIZED 145 MG TABLET PO SCH (08:31)
[2021-04-20] MEDS: THIAMINE HCL 100 MG TAB PO SCH (08:31)
[2021-04-20] MEDS: FEXOFENADINE HCL 180 MG TAB PO SCH (08:31)
[2021-04-20] MEDS: CEROVITE ADV FORMULA TAB PO SCH (08:32)
[2021-04-20] MEDS: FLUTICASONE PROPIONATE NA SPR 16 GM BTL SCH (08:32)
[2021-04-20] MEDS: METOPROLOL TARTRATE 100 MG TAB PO SCH ×2 (08:32→20:30)
[2021-04-20] MEDS: FLUTICASONE FUROATE 100MCG 14 PUFFS/INHALER INH SCH (08:32)
[2021-04-20] MEDS: PANTOprazole 40 MG TAB PO SCH (08:33)
[2021-04-20] MEDS: allopurinoL 300 MG TAB PO SCH (08:33)
[2021-04-20] MEDS: INSULIN ASPART PER UNIT SC SCH ×4 (08:36→21:01)
[2021-04-20 08:38] LABS: C Reactive Protein 5.1 mg/dl (0-0.29); Calcium 8.7 mg/dl (8.5-10.1); Creatinine Clr Calc Pharmacy 81.8 ml/min; Est GFR (African American) 89.2 ml/min; Magnesium 1.9 mg/dl (1.8-2.4); Phosphorus 2.5 mg/dl (2.5-4.9); Potassium 3.6 mmol/L (3.5-5.1)
[2021-04-20] MEDS ORDERED: POTASSIUM CHLORIDE CRTAB 20 MEQ TABCR PO STA (09:53)
--- NOTE | 2021-04-20 09:53 | Hospitalist Progress Note ---
Date of Service April 20, 2021 Assessment & Plan (1) Pneumonia due to COVID-19 virus: Plan: New infection since his operation and discharge from the hospital between and . Hypoxia present. Currently on 4 L of oxygen via nasal cannula Cont. remdesivir up to 5 days and dexamethasone up to 10 days. Continue these therapies and supportive care as needed. Patient unable to prone secondary to current surgical site. (2) Post-operative state: Plan: Recently completed a 6-day course of levofloxacin 750 mg p.o. daily and Augmentin twice daily per his surgeon, Dr. Vic Lacey-general surgeon out of [facility]. Pt is s/p laparoscopic cholecystectomy, date unknown with MARIBEL drains in place x3. reports touching base with surgeon outpatient office and they requested a follow-up on Thursday. Suggest contacting surgical office on-call doc for guidance on MARIBEL drain management versus removal. Currently there is no fever or signs of abdominal pain or infection. He remains on Zosyn and doxycycline. (3) DMII (diabetes mellitus, type 2): Plan: Chronic, A1c of 6.5 reflects good control. Continue insulin per inpatient protocol. Currently euglycemic. (4) Depression: Plan: Chronic, stable, continue duloxetine per home regimen. (5) SUMMER (obstructive sleep apnea): Plan: CPAP qHS (6) DVT prophylaxis: Plan: Lovenox Full code Disposition-to home when medically stable and hypoxia has resolved. Admission and Anticipated Discharge Date Admission Date: April 18, 2021 Subjective 70 yo M recently hospitalized for acute cholecystitis s/p laparoscopic cholecyst ectomy worsening symptoms admitted for COVID-pneumonia. Patient seen in bed, in no acute distress, says that he is feeling better Reports his breathing is improved Denies any abdominal pain Denies any fevers, chills, chest pain,incr. shortness of breath Says he has loose stool once a day in the morning, appetite is fair Yesterday pt's was contacted to clarify instructions from his surgeon, Vic Cornejo from [facility], [place], [place], states patient was on levofloxacin 750 mg daily x7 days, Augmentin twice daily x7 days and that he had completed 6 days prior to admission to [facility]. She states he had a postoperative follow-up in the office by Dr. Lacey who decided to leave the drains in and sent him back for imaging and blood work to the ER. He was sent home from the [facility] and the following day was admitted to [facility]. states surgical nurse contacted her and set up follow-up for patient for next Thursday has been made no mention of MARIBEL drains status Review of Systems Review of Systems: All systems reviewed & are unremarkable except as noted in Subjective Physical Exam Physical Exam: CONSTITUTIONAL: W N/WD, in NAD, on 4 L of O2 EYES: nor mal conjunctivae, no scleral icterus ENT: external ea r and nose normal, MMM NECK:supple RESPIRATORY: chema r to auscultation bilaterally, no cr ackles, rales or w heezes, normal res piratory effort CA RDIOVASCULAR: reg ular rate and rhyt hm, S1 and 2 heard without murmurs, gallops or rubs, n o JVD, no peripher al edema CHEST: i nspection of chest was normal GASTRO INTESTINAL: soft, nontender, nondis tended, no guardin g, +MARIBEL drain x [address] with crust ing around the ins ertion site MUSCUL OSKELETAL: streng th 5/5 throughout, head is normoceph alic and atraumati c, neck supple SKI N: warm and dry N EUROLOGIC:Alert a nd oriented, answe ring questions sadaf ropriately, no fac ial asymmetry, spe ech fluent, motor extremities PSYCHI ATRIC: alert coop erative and orient ed to person, plac e and time. Results & Data Results & Data ([facility]) Vital Signs (Past 12 Hours) Vital Signs Temp Pulse Pulse Resp BP BP Pulse Ox 04/20/21 07:24 37.0 C 74 19 130/62 92 04/20/21 04:52 37.0 C 71 22 136/84 04/20/21 00:00 69 88 L 04/19/21 23:45 36.8 C 67 18 146/95 H 90 04/19/21 23:44 68 146/95 H 89 L 04/19/21 23:00 61 92 04/19/21 22:00 65 91 Laboratory Results 04/20/21 04/20/21 04/20/21 Range/Units 07:44 07:31 07:31 WBC 8.68 (4.8-10.8) K/uL RBC 4.20 L (4.7-6.1) M/uL Hgb 13.6 L (14.0-18.0) g/dL Hct 40.3 L (42-52) % MCV 96.0 (80-100) fL MCH 32.4 (25-34) pg MCHC 33.7 (32-36) g/dL RDW Std Deviation 47.9 H (36.4-46.3) fL RDW Coeff of Lennox 13.6 (11.5-14.5) % Plt Count 482 H (130-400) K/uL MPV 10.0 (7.4-10.4) fL Sodium 140 (136-145) mmol/L Potassium 3.6 (3.5-5.1) mmol/L Chloride 110 H (98-107) mmol/L Carbon Dioxide 25 (21-32) mmol/L Anion Gap 5.0 (3-11) BUN 22 H (7-18) mg/dl Creatinine 1.00 (0.6-1.4) mg/dl Est Cr Clr Drug Dosing 81.8 ml/min Est GFR ( Amer) 89.2 ml/min Est GFR (Non-Af Amer) 77.0 ml/min BUN/Creatinine Ratio 22.0 H (10-20) Glucose 111 H (70-99) mg/dl POC Glucose 103 H (70-99) mg/dl Calcium 8.7 (8.5-10.1) mg/dl Phosphorus 2.5 (2.5-4.9) mg/dl Magnesium 1.9 (1.8-2.4) mg/dl AST 47 H (15-37) U/L ALT 40 (12-78) C-Reactive Protein 5.10 H (0-0.29) mg/dl 04/19/21 04/19/21 04/19/21 Range/Units 20:17 16:34 12:01 WBC (4.8-10.8) K/uL RBC (4.7-6.1) M/uL Hgb (14.0-18.0) g/dL Hct (42-52) % MCV (80-100) fL MCH (25-34) pg MCHC (32-36) g/dL RDW Std Deviation (36.4-46.3) fL RDW Coeff of Lennox (11.5-14.5) % Plt Count (130-400) K/uL MPV (7.4-10.4) fL Sodium (136-145) mmol/L Potassium (3.5-5.1) mmol/L Chloride (98-107) mmol/L Carbon Dioxide (21-32) mmol/L Anion Gap (3-11) BUN (7-18) mg/dl Creatinine (0.6-1.4) mg/dl Est Cr Clr Drug Dosing ml/min Est GFR ( Amer) ml/min Est GFR (Non-Af Amer) ml/min BUN/Creatinine Ratio (10-20) Glucose (70-99) mg/dl POC Glucose 170 H 157 H 175 H (70-99) mg/dl Calcium (8.5-10.1) mg/dl Phosphorus (2.5-4.9) mg/dl Magnesium (1.8-2.4) mg/dl AST (15-37) U/L ALT (12-78) C-Reactive Protein (0-0.29) mg/dl Medications Administered Current Inpatient Medications Acetaminophen (Acetaminophen 325 Mg Tab) 650 mg PO Q4H PRN PRN Reason: Pain or Fever Stop: 05/18/21 22:58 Albuterol (Albuterol Hfa 8 Gm Inhaler) 2 puffs INH Q4H PRN PRN Reason: Shortness Of Breath Or Wheezin Stop: 05/18/21 22:58 Allopurinol (Allopurinol 300 Mg Tab) 300 mg PO DAILY S[facility]INA Stop: 05/19/21 08:59 Last Admin: 04/20/21 08:33 Dose: 300 mg Documented by: Aspirin (Aspirin 81 Mg Ectab) 81 mg PO DAILY S[facility]INA Stop: 05/19/21 08:59 Last Admin: 04/20/21 08:30 Dose: 81 mg Documented by: Atorvastatin Calcium (Atorvastatin 40 Mg Tab) 40 mg PO DAILY SABRINA Stop: 05/19/21 08:59 Last Admin: 04/20/21 08:30 Dose: 40 mg Documented by: Dextrose (Dextrose 50% 50 Ml Syringe) 25 - 50 ml IV UD PRN; Protocol PRN Reason: Hypoglycemia Protocol Stop: 05/19/21 00:14 Duloxetine HCl (Duloxetine Hcl 60 Mg Cap) 60 mg PO DAILY [facility] Stop: 05/19/21 08:59 Last Admin: 04/20/21 08:30 Dose: 60 mg Documented by: Enoxaparin Sodium (Enoxaparin Inj 40 Mg/0.4 Ml Syr) 40 mg SQ Q24H [facility] Stop: 05/19/21 08:59 Last Admin: 04/20/21 08:31 Dose: 40 mg Documented by: Fenofibrate (Fenofibrate Nanocrystallized 145 Mg Tablet) 145 mg PO DAILY S[facility]INA Stop: 05/19/21 08:59 Last Admin: 04/20/21 08:31 Dose: 145 mg Documented by: Fexofenadine HCl (Fexofenadine Hcl 180 Mg Tab) 180 mg PO DAILY [facility] Stop: 05/19/21 08:59 Last Admin: 04/20/21 08:31 Dose: 180 mg Documented by: Fluticasone Furoate (Fluticasone Furoate 100mcg 14 Puffs/Inhaler) 1 puffs INH QAM [facility] Stop: 05/19/21 08:59 Last Admin: 04/20/21 08:32 Dose: 1 puffs Documented by: Fluticasone Propionate (Fluticasone Propionate Na Spr 16 Gm Btl) 2 sprays NA DAILY [facility] Stop: 05/19/21 08:59 Last Admin: 04/20/21 08:32 Dose: 1 sprays Documented by: Glucagon (Glucagon For Inj 1 Mg Vial) 1 mg IM UD PRN; Protocol PRN Reason: Hypoglycemia Protocol Stop: 05/19/21 00:14 Glucose (Glucose 40% Gel 15 Gm Tube) 15 - 30 gm PO UD PRN; Protocol PRN Reason: Hypoglycemia Protocol Stop: 05/19/21 00:14 Glucose (Glucose 10 Tabs/Tube) 4 - 8 tabs PO UD PRN; Protocol PRN Reason: Hypoglycemia Protocol Stop: 05/19/21 00:14 Remdesivir 100 mg/ Sodium (Chloride) 250 mls @ 250 mls/hr IV Q24H [facility]; Protocol Stop: 04/22/21 20:59 Last Infusion: 04/20/21 03:28 Dose: Infused Documented by: Dexamethasone 6 mg/ Syringe 1.5 mls @ 1 mls/min IV DAILY [facility] Stop: 04/29/21 08:59 Last Admin: 04/20/21 08:30 Dose: 1 mls/min Documented by: Doxycycline Hyclate 100 mg/ (Dextrose) 110 mls @ 50 mls/hr IV Q12H [facility] Stop: 04/26/21 00:00 Last Infusion: 04/20/21 03:27 Dose: Infused Documented by: Piperacillin Sod/Tazobactam (Sod 3.375 gm/ Dextrose) 115 mls @ 28.75 mls/hr IV Q8H [facility]; Protocol Stop: 04/26/21 09:59 Last Infusion: 04/20/21 07:09 Dose: Infused Documented by: Insulin Aspart (Insulin Aspart Per Unit) 0 units SC ACHS [facility] Stop: 05/19/21 07:29 Last Admin: 04/20/21 08:36 Dose: 3 units Documented by: Levothyroxine Sodium (Levothyroxine Sodium 175 Mcg Tablet) 175 mcg PO DAILYBB [facility] Stop: 05/19/21 06:29 Last Admin: 04/20/21 05:59 Dose: 175 mcg Documented by: Metoprolol Tartrate (Metoprolol Tartrate 100 Mg Tab) 100 mg PO BID [facility] Stop: 05/19/21 08:59 Last Admin: 04/20/21 08:32 Dose: 100 mg Documented by: Miscellaneous (Carbohydrates For Hypoglycemia ) 15 - 30 gm PO UD PRN PRN Reason: Hypoglycemia Treatment Stop: 05/19/21 00:14 Miscellaneous Information (Piperacill/Tazobac Consult Active) 1 ea N/A UD PRN PRN Reason: Consult Stop: 05/19/21 02:03 Multivitamins/Minerals (Cerovite Adv Formula Tab) 1 tab PO QAM [facility] Stop: 05/19/21 08:59 Last Admin: 04/20/21 08:32 Dose: 1 tab Documented by: Nitroglycerin (Nitroglycerin Sl 0.4 Mg/Tab Tab) 0.4 mg SL UD PRN PRN Reason: Chest Pain Stop: 05/18/21 22:58 Pantoprazole Sodium (Pantoprazole 40 Mg Tab) 40 mg PO DAILY [facility] Stop: 05/19/21 08:59 Last Admin: 04/20/21 08:33 Dose: 40 mg Documented by: Sodium Chloride (Sodium Chloride 0.9% 10ml Flush) 30 ml IV Q24H [facility] Stop: 04/22/21 23:00 Last Admin: 04/19/21 21:27 Dose: 30 ml Documented by: Thiamine HCl (Thiamine Hcl 100 Mg Tab) [facility] Stop: 05/19/21 08:59 Last Admin: 04/20/21 08:31 Dose: 100 mg Documented by:
[2021-04-20] MEDS: ADVANCED PROBIOTIC 1250 MG CAPSULE PO SCH (18:26)
[2021-04-20] MEDS: guaiFENesin 600 MG TABCR PO SCH (20:30)
[2021-04-20] MEDS: REMDESIVIR 100 MG in SODIUM CHLORIDE 0.9% 230 ML IV SCH (20:30)
[2021-04-21] MEDS: SODIUM CHLORIDE 0.9% 10ML FLUSH IV SCH ×2 (00:40→22:37)
[2021-04-21] MEDS: DOXYCYCLINE HYCLATE 100 MG in DEXTROSE 5% 100 ML IV SCH ×2 (00:40→11:44)
[2021-04-21] MEDS: PIPERACILLIN/TAZOBACTAM 3.375 GM in DEXTROSE 5% 100 ML IV SCH ×3 (02:34→18:04)
[2021-04-21] MEDS: LEVOTHYROXINE SODIUM 175 MCG TABLET PO SCH (06:11)
[2021-04-21 06:41] LABS: Hematocrit (blood only) 41.5 % (42-52); Mean Corpuscular Hemoglobin 32.1 pg (25-34); Mean Corpuscular Hgb Conc 33.7 g/dL (32-36); Mean Corpuscular Volume 95.2 fL (80-100); Mean Platelet Volume 10.2 fL (7.4-10.4); Platelet Count 553 K/uL (130-400); RDW Coefficient of Variation 13.4 % (11.5-14.5); Red Blood Count 4.36 M/uL (4.7-6.1); White Blood Count 8.61 K/uL (4.8-10.8)
[2021-04-21 06:59] LABS: BUN Creatinine Ratio 26.6 (10-20); Calcium 8.7 mg/dl (8.5-10.1); Creatinine Clr Calc Pharmacy 96.4 ml/min; Est GFR (African American) 103.3 ml/min; Est GFR (Non-African American) 89.1 ml/min; Magnesium 1.7 mg/dl (1.8-2.4); Phosphorus 2.2 mg/dl (2.5-4.9); Potassium 3.5 mmol/L (3.5-5.1)
[2021-04-21] MEDS ORDERED: POTASSIUM CHLORIDE CRTAB 20 MEQ TABCR PO STA (07:49)
--- NOTE | 2021-04-21 07:49 | Hospitalist Progress Note ---
Date of Service April 21, 2021 Assessment & Plan (1) Pneumonia due to COVID-19 virus: Plan: New infection since his operation and discharge from the hospital between Jerzy and . Hypoxia present. Currently on 4 L of oxygen via nasal cannula Cont. remdesivir up to 5 days and dexamethasone up to 10 days. Last day of remdesivir - April 22 Continue these therapies and supportive care as needed. Patient unable to prone secondary to current surgical site. (2) Post-operative state: Plan: Recently completed a 6-day course of levofloxacin 750 mg p.o. daily and Augmentin twice daily per his surgeon, Dr. Vic Lacey-general surgeon out of [facility]. Pt is s/p laparoscopic cholecystectomy, date unknown with MARIBEL drains in place x3. reports touching base with surgeon outpatient office and they requested a follow-up on Thursday. Currently there is no fever or signs of abdominal pain or infection. He remains on Zosyn and doxycycline. Plan to contact patient's surgeon, for update, and guidance regarding MARIBEL drain management versus removal. Also records were requested last week (3) DMII (diabetes mellitus, type 2): Plan: Chronic, A1c of 6.5 reflects good control. Continue insulin per inpatient protocol. Currently euglycemic. (4) Depression: Plan: Chronic, stable, continue duloxetine per home regimen. (5) SUMMER (obstructive sleep apnea): Plan: CPAP qHS (6) DVT prophylaxis: Plan: Lovenox Full code Disposition-to home when medically stable and hypoxia has resolved. Admission and Anticipated Discharge Date Admission Date: April 18, 2021 Subjective 70 yo M recently hospitalized for acute cholecystitis s/p lap choly worsening symptoms admitted for COVID-pneumonia. Pt is laying in bed, in NAD Reports his breathing is improved Denies any abdominal pain Denies any fevers, chills, chest pain,incr. shortness of breath Pt's was contacted to clarify instructions from his surgeon, Vic Cornejo from [facility], [place], [place], states pt was on levofloxacin 750 mg daily x7 days, Augmentin twice daily x7 days and that he had completed 6 days prior to admission to [facility]. She states he had a postoperative follow-up in the office by Dr. Lacey who decided to leave the drains in and sent him back for imaging and blood work to the ER. He was sent home from the [place] ER and the following day was admitted to [facility]. states surgical nurse contacted her and set up follow-up for patient for next Thursday has been made no mention of MARIBEL drains status Will touch base with surgeon's office, also records were requested last week. Review of Systems Review of Systems: All systems reviewed & are unremarkable except as noted in Subjective Physical Exam Physical Exam: CONSTITUTIONAL: W N/WD, in NAD, on 4 L of O2 EYES: nor mal conjunctivae, no scleral icterus ENT: external ea r and nose normal, MMM NECK:supple RESPIRATORY:Somew hat diminished marjorie ath sounds, no whe ezes, normal respi ratory effort CARD IOVASCULAR: regul ar rate and rhythm , S1 and 2 heard w ithout murmurs, ga llops or rubs, no JVD, no peripheral edema CHEST: ins pection of chest w as normal GASTROIN TESTINAL: soft, n ontender, nondiste nded, no guarding, +MARIBEL drain x [address], minimal rita inage MUSCULOSKELE DEVONTE: strength 5/5 throughout, head is normocephalic a nd atraumatic, nec k supple SKIN: wa rm and dry NEUROLO GIC:Alert and ada ented, answering q uestions appropria tely, no facial as ymmetry, speech fl uent, motor extrem ities PSYCHIATRIC: alert cooperativ e and oriented to person, place and time. Results & Data Results & Data ([facility]) Vital Signs (Past 12 Hours) Vital Signs Temp Pulse Pulse Resp BP BP Pulse Ox 04/21/21 07:30 36.8 C 61 20 164/97 H 91 04/21/21 05:19 37.2 C 74 28 H 165/96 H 90 04/20/21 23:59 62 04/20/21 23:24 36.9 C 60 26 H 139/84 92 04/20/21 20:33 36.9 C 80 28 H 148/93 H 90 Laboratory Results 04/21/21 04/21/21 04/20/21 Range/Units 06:09 06:09 20:31 WBC 8.61 (4.8-10.8) K/uL RBC 4.36 L (4.7-6.1) M/uL Hgb 14.0 (14.0-18.0) g/dL Hct 41.5 L (42-52) % MCV 95.2 (80-100) fL MCH 32.1 (25-34) pg MCHC 33.7 (32-36) g/dL RDW Std Deviation 47.0 H (36.4-46.3) fL RDW Coeff of Lennox 13.4 (11.5-14.5) % Plt Count 553 H (130-400) K/uL MPV 10.2 (7.4-10.4) fL Sodium 140 (136-145) mmol/L Potassium 3.5 (3.5-5.1) mmol/L Chloride 110 H (98-107) mmol/L Carbon Dioxide 25 (21-32) mmol/L Anion Gap 6.0 (3-11) BUN 23 H (7-18) mg/dl Creatinine 0.86 (0.6-1.4) mg/dl Est Cr Clr Drug Dosing 96.4 ml/min Est GFR ( Amer) 103.3 ml/min Est GFR (Non-Af Amer) 89.1 ml/min BUN/Creatinine Ratio 26.6 H (10-20) Glucose 94 (70-99) mg/dl POC Glucose 151 H (70-99) mg/dl Calcium 8.7 (8.5-10.1) mg/dl Phosphorus 2.2 L (2.5-4.9) mg/dl Magnesium 1.7 L (1.8-2.4) mg/dl AST 42 H (15-37) U/L ALT 41 (12-78) C-Reactive Protein (0-0.29) mg/dl 04/20/21 04/20/21 04/20/21 Range/Units 16:36 12:07 07:44 WBC (4.8-10.8) K/uL RBC (4.7-6.1) M/uL Hgb (14.0-18.0) g/dL Hct (42-52) % MCV (80-100) fL MCH (25-34) pg MCHC (32-36) g/dL RDW Std Deviation (36.4-46.3) fL RDW Coeff of Lennox (11.5-14.5) % Plt Count (130-400) K/uL MPV (7.4-10.4) fL Sodium (136-145) mmol/L Potassium (3.5-5.1) mmol/L Chloride (98-107) mmol/L Carbon Dioxide (21-32) mmol/L Anion Gap (3-11) BUN (7-18) mg/dl Creatinine (0.6-1.4) mg/dl Est Cr Clr Drug Dosing ml/min Est GFR ( Amer) ml/min Est GFR (Non-Af Amer) ml/min BUN/Creatinine Ratio (10-20) Glucose (70-99) mg/dl POC Glucose 159 H 121 H 103 H (70-99) mg/dl Calcium (8.5-10.1) mg/dl Phosphorus (2.5-4.9) mg/dl Magnesium (1.8-2.4) mg/dl AST (15-37) U/L ALT (12-78) C-Reactive Protein (0-0.29) mg/dl 04/20/21 04/20/21 Range/Units 07:31 07:31 WBC 8.68 (4.8-10.8) K/uL RBC 4.20 L (4.7-6.1) M/uL Hgb 13.6 L (14.0-18.0) g/dL Hct 40.3 L (42-52) % MCV 96.0 (80-100) fL MCH 32.4 (25-34) pg MCHC 33.7 (32-36) g/dL RDW Std Deviation 47.9 H (36.4-46.3) fL RDW Coeff of Lennox 13.6 (11.5-14.5) % Plt Count 482 H (130-400) K/uL MPV 10.0 (7.4-10.4) fL Sodium 140 (136-145) mmol/L Potassium 3.6 (3.5-5.1) mmol/L Chloride 110 H (98-107) mmol/L Carbon Dioxide 25 (21-32) mmol/L Anion Gap 5.0 (3-11) BUN 22 H (7-18) mg/dl Creatinine 1.00 (0.6-1.4) mg/dl Est Cr Clr Drug Dosing 81.8 ml/min Est GFR ( Amer) 89.2 ml/min Est GFR (Non-Af Amer) 77.0 ml/min BUN/Creatinine Ratio 22.0 H (10-20) Glucose 111 H (70-99) mg/dl POC Glucose (70-99) mg/dl Calcium 8.7 (8.5-10.1) mg/dl Phosphorus 2.5 (2.5-4.9) mg/dl Magnesium 1.9 (1.8-2.4) mg/dl AST 47 H (15-37) U/L ALT 40 (12-78) C-Reactive Protein 5.10 H (0-0.29) mg/dl Medications Administered Current Inpatient Medications Acetaminophen (Acetaminophen 325 Mg Tab) 650 mg PO Q4H PRN PRN Reason: Pain or Fever Stop: 05/18/21 22:58 Albuterol (Albuterol Hfa 8 Gm Inhaler) 2 puffs INH Q4H PRN PRN Reason: Shortness Of Breath Or Wheezin Stop: 05/18/21 22:58 Allopurinol (Allopurinol 300 Mg Tab) 300 mg PO DAILY [facility] Stop: 05/19/21 08:59 Last Admin: 04/20/21 08:33 Dose: 300 mg Documented by: Aspirin (Aspirin 81 Mg Ectab) 81 mg PO DAILY [facility] Stop: 05/19/21 08:59 Last Admin: 04/20/21 08:30 Dose: 81 mg Documented by: Atorvastatin Calcium (Atorvastatin 40 Mg Tab) 40 mg PO DAILY [facility] Stop: 05/19/21 08:59 Last Admin: 04/20/21 08:30 Dose: 40 mg Documented by: Dextrose (Dextrose 50% 50 Ml Syringe) 25 - 50 ml IV UD PRN; Protocol PRN Reason: Hypoglycemia Protocol Stop: 05/19/21 00:14 Duloxetine HCl (Duloxetine Hcl 60 Mg Cap) 60 mg PO DAILY [facility] Stop: 05/19/21 08:59 Last Admin: 04/20/21 08:30 Dose: 60 mg Documented by: Enoxaparin Sodium (Enoxaparin Inj 40 Mg/0.4 Ml Syr) 40 mg SQ Q24H [facility] Stop: 05/19/21 08:59 Last Admin: 04/20/21 08:31 Dose: 40 mg Documented by: Fenofibrate (Fenofibrate Nanocrystallized 145 Mg Tablet) 145 mg PO DAILY [facility] Stop: 05/19/21 08:59 Last Admin: 04/20/21 08:31 Dose: 145 mg Documented by: Fexofenadine HCl (Fexofenadine Hcl 180 Mg Tab) 180 mg PO DAILY [facility] Stop: 05/19/21 08:59 Last Admin: 04/20/21 08:31 Dose: 180 mg Documented by: Fluticasone Furoate (Fluticasone Furoate 100mcg 14 Puffs/Inhaler) 1 puffs INH QAM [facility] Stop: 05/19/21 08:59 Last Admin: 04/20/21 08:32 Dose: 1 puffs Documented by: Fluticasone Propionate (Fluticasone Propionate Na Spr 16 Gm Btl) 2 sprays NA DAILY [facility] Stop: 05/19/21 08:59 Last Admin: 04/20/21 08:32 Dose: 1 sprays Documented by: Glucagon (Glucagon For Inj 1 Mg Vial) 1 mg IM UD PRN; Protocol PRN Reason: Hypoglycemia Protocol Stop: 05/19/21 00:14 Glucose (Glucose 40% Gel 15 Gm Tube) 15 - 30 gm PO UD PRN; Protocol PRN Reason: Hypoglycemia Protocol Stop: 05/19/21 00:14 Glucose (Glucose 10 Tabs/Tube) 4 - 8 tabs PO UD PRN; Protocol PRN Reason: Hypoglycemia Protocol Stop: 05/19/21 00:14 Guaifenesin (Guaifenesin 600 Mg Tabcr) 600 mg PO Q12 [facility] Stop: 05/20/21 20:59 Last Admin: 04/20/21 20:30 Dose: 600 mg Documented by: Remdesivir 100 mg/ Sodium (Chloride) 250 mls @ 250 mls/hr IV Q24H [facility]; Protocol Stop: 04/22/21 20:59 Last Infusion: 04/20/21 21:58 Dose: Infused Documented by: Dexamethasone 6 mg/ Syringe 1.5 mls @ 1 mls/min IV DAILY [facility] Stop: 04/29/21 08:59 Last Admin: 04/20/21 08:30 Dose: 1 mls/min Documented by: Doxycycline Hyclate 100 mg/ (Dextrose) 110 mls @ 50 mls/hr IV Q12H [facility] Stop: 04/26/21 00:00 Last Infusion: 04/21/21 02:52 Dose: Infused Documented by: Piperacillin Sod/Tazobactam (Sod 3.375 gm/ Dextrose) 115 mls @ 28.75 mls/hr IV Q8H [facility]; Protocol Stop: 04/26/21 09:59 Last Infusion: 04/21/21 06:54 Dose: Infused Documented by: Insulin Aspart (Insulin Aspart Per Unit) 0 units SC ACHS [facility] Stop: 05/19/21 07:29 Last Admin: 04/20/21 21:01 Dose: 1 units Documented by: Lactobacillus Acidoph/Casei/Rhamnos (Advanced Probiotic 1250 Mg Capsule) 2 cap PO DAILY [facility] Stop: 05/20/21 16:29 Last Admin: 04/20/21 18:26 Dose: 2 cap Documented by: Levothyroxine Sodium (Levothyroxine Sodium 175 Mcg Tablet) 175 mcg PO DAILYBB [facility] Stop: 05/19/21 06:29 Last Admin: 04/21/21 06:11 Dose: 175 mcg Documented by: Magnesium Oxide (Magnesium Oxide 400 Mg Tab) 400 mg PO QAM [facility] Stop: 05/21/21 08:59 Metoprolol Tartrate (Metoprolol Tartrate 100 Mg Tab) 100 mg PO BID [facility] Stop: 05/19/21 08:59 Last Admin: 04/20/21 20:30 Dose: 100 mg Documented by: Miscellaneous (Carbohydrates For Hypoglycemia ) 15 - 30 gm PO UD PRN PRN Reason: Hypoglycemia Treatment Stop: 05/19/21 00:14 Miscellaneous Information (Piperacill/Tazobac Consult Active) 1 ea N/A UD PRN PRN Reason: Consult Stop: 05/19/21 02:03 Multivitamins/Minerals (Cerovite Adv Formula Tab) 1 tab PO QAM [facility] Stop: 05/19/21 08:59 Last Admin: 04/20/21 08:32 Dose: 1 tab Documented by: Nitroglycerin (Nitroglycerin Sl 0.4 Mg/Tab Tab) 0.4 mg SL UD PRN PRN Reason: Chest Pain Stop: 05/18/21 22:58 Pantoprazole Sodium (Pantoprazole 40 Mg Tab) 40 mg PO DAILY [facility] Stop: 05/19/21 08:59 Last Admin: 04/20/21 08:33 Dose: 40 mg Documented by: Sodium Chloride (Sodium Chloride 0.9% 10ml Flush) 30 ml IV Q24H [facility] Stop: 04/22/21 23:00 Last Admin: 04/21/21 00:40 Dose: 30 ml Documented by: Thiamine HCl (Thiamine Hcl 100 Mg Tab) 100 mg PO QAM [facility] Stop: 05/19/21 08:59 Last Admin: 04/20/21 08:31 Dose: 100 mg Documented by:
[2021-04-21] MEDS ORDERED: MAGNESIUM SULFATE / D5W 1 GM/100 ML BAG IV ONE (08:00)
[2021-04-21] MEDS: MAGNESIUM OXIDE 400 MG TAB PO SCH (08:25)
[2021-04-21] MEDS: dexAMETHasone 6 MG in SYRINGE 0 ML IV SCH (08:25)
[2021-04-21] MEDS: ASPIRIN 81 MG ECTAB PO SCH (08:26)
[2021-04-21] MEDS: FEXOFENADINE HCL 180 MG TAB PO SCH (08:26)
[2021-04-21] MEDS: ADVANCED PROBIOTIC 1250 MG CAPSULE PO SCH (08:26)
[2021-04-21] MEDS: PANTOprazole 40 MG TAB PO SCH (08:27)
[2021-04-21] MEDS: ATORVASTATIN 40 MG TAB PO SCH (08:27)
[2021-04-21] MEDS: FENOFIBRATE NANOCRYSTALLIZED 145 MG TABLET PO SCH (08:27)
[2021-04-21] MEDS: allopurinoL 300 MG TAB PO SCH (08:27)
[2021-04-21] MEDS: DULoxetine HCL 60 MG CAP PO SCH (08:28)
[2021-04-21] MEDS: THIAMINE HCL 100 MG TAB PO SCH (08:28)
[2021-04-21] MEDS: CEROVITE ADV FORMULA TAB PO SCH (08:28)
[2021-04-21] MEDS: METOPROLOL TARTRATE 100 MG TAB PO SCH ×2 (08:28→20:48)
[2021-04-21] MEDS: ENOXAPARIN INJ 40 MG/0.4 ML SYR SQ SCH (08:29)
[2021-04-21] MEDS: FLUTICASONE PROPIONATE NA SPR 16 GM BTL SCH (08:29)
[2021-04-21] MEDS: FLUTICASONE FUROATE 100MCG 14 PUFFS/INHALER INH SCH (08:29)
[2021-04-21] MEDS: INSULIN ASPART PER UNIT SC SCH ×4 (09:16→20:17)
[2021-04-21] MEDS: guaiFENesin 600 MG TABCR PO SCH ×2 (11:45→20:48)
[2021-04-21] MEDS: REMDESIVIR 100 MG in SODIUM CHLORIDE 0.9% 230 ML IV SCH (21:22)
[2021-04-22] MEDS: DOXYCYCLINE HYCLATE 100 MG in DEXTROSE 5% 100 ML IV SCH ×3 (00:10→23:33)
[2021-04-22] MEDS: PIPERACILLIN/TAZOBACTAM 3.375 GM in DEXTROSE 5% 100 ML IV SCH ×3 (02:26→17:42)
[2021-04-22 05:37] LABS: Appearance Urine Clear (Clear); Bacteria Urine Automated Negative (Negative); Bilirubin Urine Negative (Negative); Blood Urine Negative (Negative); Color Urine Dark Yellow; Epithelial Cell Urine Auto >30 /lpf (0-5); Glucose Urine UA Negative (Negative); Ketones Urine Negative (Negative); Leukocyte Esterase Urine Trace (Negative); Nitrite Urine Negative (Negative); Protein Urine Negative (Negative); RBC Urine Automated 0-4 /hpf (0-4); Specific Gravity Urine 1.034 (1.000-1.030); Urobilinogen Urine Negative (Negative); pH Urine 5.5 (4.5-7.5)
[2021-04-22] MEDS: LEVOTHYROXINE SODIUM 175 MCG TABLET PO SCH (06:38)
[2021-04-22] MEDS: THIAMINE HCL 100 MG TAB PO SCH (09:02)
[2021-04-22] MEDS: guaiFENesin 600 MG TABCR PO SCH ×2 (09:02→20:36)
[2021-04-22] MEDS: dexAMETHasone 6 MG in SYRINGE 0 ML IV SCH (09:02)
[2021-04-22] MEDS: FENOFIBRATE NANOCRYSTALLIZED 145 MG TABLET PO SCH (09:03)
[2021-04-22] MEDS: ATORVASTATIN 40 MG TAB PO SCH (09:03)
[2021-04-22] MEDS: ASPIRIN 81 MG ECTAB PO SCH (09:03)
[2021-04-22] MEDS: PANTOprazole 40 MG TAB PO SCH (09:03)
[2021-04-22] MEDS: allopurinoL 300 MG TAB PO SCH (09:03)
[2021-04-22] MEDS: DULoxetine HCL 60 MG CAP PO SCH (09:04)
[2021-04-22] MEDS: ADVANCED PROBIOTIC 1250 MG CAPSULE PO SCH (09:04)
[2021-04-22] MEDS: FEXOFENADINE HCL 180 MG TAB PO SCH (09:04)
[2021-04-22] MEDS: CEROVITE ADV FORMULA TAB PO SCH (09:05)
[2021-04-22] MEDS: METOPROLOL TARTRATE 100 MG TAB PO SCH ×2 (09:05→20:37)
[2021-04-22] MEDS: ENOXAPARIN INJ 40 MG/0.4 ML SYR SQ SCH (09:05)
[2021-04-22] MEDS: MAGNESIUM OXIDE 400 MG TAB PO SCH (09:05)
[2021-04-22] MEDS: FLUTICASONE PROPIONATE NA SPR 16 GM BTL SCH (09:06)
[2021-04-22] MEDS: FLUTICASONE FUROATE 100MCG 14 PUFFS/INHALER INH SCH (09:06)
[2021-04-22] MEDS: INSULIN ASPART PER UNIT SC SCH ×4 (09:19→20:37)
[2021-04-22 09:54] LABS: Hematocrit (blood only) 45.4 % (42-52); Hemoglobin 15.4 g/dL (14.0-18.0); Mean Corpuscular Hemoglobin 32.2 pg (25-34); Mean Corpuscular Hgb Conc 33.9 g/dL (32-36); Mean Corpuscular Volume 94.8 fL (80-100); Mean Platelet Volume 10.2 fL (7.4-10.4); Platelet Count 571 K/uL (130-400); RDW Coefficient of Variation 13.3 % (11.5-14.5); RDW Standard Deviation 45.8 fL (36.4-46.3); Red Blood Count 4.79 M/uL (4.7-6.1); White Blood Count 8.51 K/uL (4.8-10.8)
[2021-04-22 10:25] LABS: BUN Creatinine Ratio 21.6 (10-20); Calcium 9.1 mg/dl (8.5-10.1); Creatinine Clr Calc Pharmacy 90.7 ml/min; Est GFR (Non-African American) 86.3 ml/min; Potassium 3.8 mmol/L (3.5-5.1)
--- NOTE | 2021-04-22 10:40 | Hospitalist Progress Note ---
Date of Service April 22, 2021 Assessment & Plan (1) Pneumonia due to COVID-19 virus: Plan: New infection since his operation and discharge from the hospital between Jerzy and . Hypoxia present. Currently on 4 L of oxygen via nasal cannula Cont. remdesivir up to 5 days and dexamethasone up to 10 days. Last day of remdesivir - April 22 Continue these therapies and supportive care as needed. Patient unable to prone secondary to current surgical site. (2) Post-operative state: Plan: Recently completed a 6-day course of levofloxacin 750 mg p.o. daily and Augmentin twice daily per his surgeon, Dr. Vic Lacey-general surgeon out of [facility]. Pt is s/p laparoscopic cholecystectomy, date unknown with MARIBEL drains in place x3. reports touching base with surgeon outpatient office and they requested a follow-up on Thursday. Currently there is no fever or signs of abdominal pain or infection. He remains on Zosyn and doxycycline. Plan to contact patient's surgeon, for update, and guidance regarding MARIBEL drain management versus removal. Also records were requested last week (3) DMII (diabetes mellitus, type 2): Plan: Chronic, A1c of 6.5 reflects good control. Continue insulin per inpatient protocol. Currently euglycemic. (4) Depression: Plan: Chronic, stable, continue duloxetine per home regimen. (5) SUMMER (obstructive sleep apnea): Plan: CPAP qHS (6) DVT prophylaxis: Plan: Lovenox Full code Disposition-to home when medically stable and hypoxia has resolved. Admission and Anticipated Discharge Date Admission Date: April 18, 2021 Subjective 70 yo M recently hospitalized for acute cholecystitis s/p lap choly worsening symptoms admitted for COVID-pneumonia. Pt is sitting up in bed, eating breakfast, in NAD Continues to use 4 L of supplemental oxygen Denies any abdominal pain Denies any fevers, chills, chest pain, incr. shortness of breath Pt's was contacted to clarify instructions from his surgeon, Vic Cornejo from [facility], [place], [place], states pt was on levofloxacin 750 mg daily x7 days, Augmentin twice daily x7 days and that he had completed 6 days prior to admission to [facility]. She states he had a postoperative follow-up in the office by Dr. Lacey who decided to leave the drains in and sent him back for imaging and blood work to the ER. He was sent home from the [place] ER and the following day was admitted to [facility]. states surgical nurse contacted her and set up follow-up for patient for next Thursday has been made no mention of MARIBEL drains status Will touch base with surgeon's office, also records were requested last week. Review of Systems Review of Systems: All systems reviewed & are unremarkable except as noted in Subjective Physical Exam Physical Exam: CONSTITUTIONAL: W N/WD, in NAD, on 4 L of O2 EYES: nor mal conjunctivae, no scleral icterus ENT: external ea r and nose normal, MMM NECK:supple RESPIRATORY:Somew hat diminished marjorie ath sounds, no whe ezes, normal respi ratory effort CARD IOVASCULAR: regul ar rate and rhythm , S1 and 2 heard w ithout murmurs, ga llops or rubs, no JVD, no peripheral edema CHEST: ins pection of chest w as normal GASTROIN TESTINAL: soft, n ontender, nondiste nded, no guarding, +MARIBEL drain x [address], minimal rita inage MUSCULOSKELE DEVONTE: strength 5/5 throughout, head is normocephalic a nd atraumatic, nec k supple SKIN: wa rm and dry NEUROLO GIC:Alert and ada ented, answering q uestions appropria tely, no facial as ymmetry, speech fl uent, motor extrem ities PSYCHIATRIC: alert cooperativ e and oriented to person, place and time. Results & Data Results & Data ([facility]) Vital Signs (Past 12 Hours) Vital Signs Temp Pulse Pulse Pulse Resp BP Pulse Ox 04/22/21 08:00 66 04/22/21 07:36 36.9 C 80 18 156/89 H 91 04/22/21 03:51 36.8 C 72 18 152/74 H 90 04/21/21 22:56 36.7 C 60 18 142/92 H 93 Laboratory Results 04/22/21 04/22/21 04/22/21 Range/Units 09:27 09:27 07:52 WBC 8.51 (4.8-10.8) K/uL RBC 4.79 (4.7-6.1) M/uL Hgb 15.4 (14.0-18.0) g/dL Hct 45.4 (42-52) % MCV 94.8 (80-100) fL MCH 32.2 (25-34) pg MCHC 33.9 (32-36) g/dL RDW Std Deviation 45.8 (36.4-46.3) fL RDW Coeff of Lennox 13.3 (11.5-14.5) % Plt Count 571 H (130-400) K/uL MPV 10.2 (7.4-10.4) fL Sodium 138 (136-145) mmol/L Potassium 3.8 (3.5-5.1) mmol/L Chloride 107 (98-107) mmol/L Carbon Dioxide 24 (21-32) mmol/L Anion Gap 7.0 (3-11) BUN 20 H (7-18) mg/dl Creatinine 0.91 (0.6-1.4) mg/dl Est Cr Clr Drug Dosing 90.7 ml/min Est GFR ( Amer) 100.0 ml/min Est GFR (Non-Af Amer) 86.3 ml/min BUN/Creatinine Ratio 21.6 H (10-20) Glucose 139 H (70-99) mg/dl POC Glucose 86 (70-99) mg/dl Calcium 9.1 (8.5-10.1) mg/dl AST 34 (15-37) U/L ALT 36 (12-78) Urine Color Urine Appearance (Clear) Urine pH (4.5-7.5) Ur Specific [place] (1.000-1.030) Urine Protein (Negative) Urine Glucose (UA) (Negative) Urine Ketones (Negative) Urine Blood (Negative) Urine Nitrite (Negative) Urine Bilirubin (Negative) Urine Urobilinogen (Negative) Ur Leukocyte Esterase (Negative) Urine WBC (Auto) (0-5) /hpf Urine RBC (Auto) (0-4) /hpf U Hyaline Cast (Auto) (0-5) /lpf U Epithel Cells (Auto) (0-5) /lpf Urine Bacteria (Auto) (Negative) Ur Renal Epithelial Cell 04/22/21 04/21/21 04/21/21 Range/Units 04:45 20:12 17:06 WBC (4.8-10.8) K/uL RBC (4.7-6.1) M/uL Hgb (14.0-18.0) g/dL Hct (42-52) % MCV (80-100) fL MCH (25-34) pg MCHC (32-36) g/dL RDW Std Deviation (36.4-46.3) fL RDW Coeff of Lennox (11.5-14.5) % Plt Count (130-400) K/uL MPV (7.4-10.4) fL Sodium (136-145) mmol/L Potassium (3.5-5.1) mmol/L Chloride (98-107) mmol/L Carbon Dioxide (21-32) mmol/L Anion Gap (3-11) BUN (7-18) mg/dl Creatinine (0.6-1.4) mg/dl Est Cr Clr Drug Dosing ml/min Est GFR ( Amer) ml/min Est GFR (Non-Af Amer) ml/min BUN/Creatinine Ratio (10-20) Glucose (70-99) mg/dl POC Glucose 120 H 151 H (70-99) mg/dl Calcium (8.5-10.1) mg/dl AST (15-37) U/L ALT (12-78) Urine Color Dark Yellow Urine Appearance Clear (Clear) Urine pH 5.5 (4.5-7.5) Ur Specific [place] 1.034 H (1.000-1.030) Urine Protein Negative (Negative) Urine Glucose (UA) Negative (Negative) Urine Ketones Negative (Negative) Urine Blood Negative (Negative) Urine Nitrite Negative (Negative) Urine Bilirubin Negative (Negative) Urine Urobilinogen Negative (Negative) Ur Leukocyte Esterase Trace H (Negative) Urine WBC (Auto) 10-30 H (0-5) /hpf Urine RBC (Auto) 0-4 (0-4) /hpf U Hyaline Cast (Auto) 10-30 H (0-5) /lpf U Epithel Cells (Auto) >30 H (0-5) /lpf Urine Bacteria (Auto) Negative (Negative) Ur Renal Epithelial Cell Not Reportable 04/21/21 Range/Units 11:57 WBC (4.8-10.8) K/uL RBC (4.7-6.1) M/uL Hgb (14.0-18.0) g/dL Hct (42-52) % MCV (80-100) fL MCH (25-34) pg MCHC (32-36) g/dL RDW Std Deviation (36.4-46.3) fL RDW Coeff of Lennox (11.5-14.5) % Plt Count (130-400) K/uL MPV (7.4-10.4) fL Sodium (136-145) mmol/L Potassium (3.5-5.1) mmol/L Chloride (98-107) mmol/L Carbon Dioxide (21-32) mmol/L Anion Gap (3-11) BUN (7-18) mg/dl Creatinine (0.6-1.4) mg/dl Est Cr Clr Drug Dosing ml/min Est GFR ( Amer) ml/min Est GFR (Non-Af Amer) ml/min BUN/Creatinine Ratio (10-20) Glucose (70-99) mg/dl POC Glucose 143 H (70-99) mg/dl Calcium (8.5-10.1) mg/dl AST (15-37) U/L ALT (12-78) Urine Color Urine Appearance (Clear) Urine pH (4.5-7.5) Ur Specific [place] (1.000-1.030) Urine Protein (Negative) Urine Glucose (UA) (Negative) Urine Ketones (Negative) Urine Blood (Negative) Urine Nitrite (Negative) Urine Bilirubin (Negative) Urine Urobilinogen (Negative) Ur Leukocyte Esterase (Negative) Urine WBC (Auto) (0-5) /hpf Urine RBC (Auto) (0-4) /hpf U Hyaline Cast (Auto) (0-5) /lpf U Epithel Cells (Auto) (0-5) /lpf Urine Bacteria (Auto) (Negative) Ur Renal Epithelial Cell Medications Administered Current Inpatient Medications Acetaminophen (Acetaminophen 325 Mg Tab) 650 mg PO Q4H PRN PRN Reason: Pain or Fever Stop: 05/18/21 22:58 Albuterol (Albuterol Hfa 8 Gm Inhaler) 2 puffs INH Q4H PRN PRN Reason: Shortness Of Breath Or Wheezin Stop: 05/18/21 22:58 Allopurinol (Allopurinol 300 Mg Tab) 300 mg PO DAILY [facility] Stop: 05/19/21 08:59 Last Admin: 04/22/21 09:03 Dose: 300 mg Documented by: Aspirin (Aspirin 81 Mg Ectab) 81 mg PO DAILY [facility] Stop: 05/19/21 08:59 Last Admin: 04/22/21 09:03 Dose: 81 mg Documented by: Atorvastatin Calcium (Atorvastatin 40 Mg Tab) 40 mg PO DAILY [facility] Stop: 05/19/21 08:59 Last Admin: 04/22/21 09:03 Dose: 40 mg Documented by: Dextrose (Dextrose 50% 50 Ml Syringe) 25 - 50 ml IV UD PRN; Protocol PRN Reason: Hypoglycemia Protocol Stop: 05/19/21 00:14 Duloxetine HCl (Duloxetine Hcl 60 Mg Cap) 60 mg PO DAILY [facility] Stop: 05/19/21 08:59 Last Admin: 04/22/21 09:04 Dose: 60 mg Documented by: Enoxaparin Sodium (Enoxaparin Inj 40 Mg/0.4 Ml Syr) 40 mg SQ Q24H [facility] Stop: 05/19/21 08:59 Last Admin: 04/22/21 09:05 Dose: 40 mg Documented by: Fenofibrate (Fenofibrate Nanocrystallized 145 Mg Tablet) 145 mg PO DAILY [facility] Stop: 05/19/21 08:59 Last Admin: 04/22/21 09:03 Dose: 145 mg Documented by: Fexofenadine HCl (Fexofenadine Hcl 180 Mg Tab) 180 mg PO DAILY [facility] Stop: 05/19/21 08:59 Last Admin: 04/22/21 09:04 Dose: 180 mg Documented by: Fluticasone Furoate (Fluticasone Furoate 100mcg 14 Puffs/Inhaler) 1 puffs INH QAM [facility] Stop: 05/19/21 08:59 Last Admin: 04/22/21 09:06 Dose: 1 puffs Documented by: Fluticasone Propionate (Fluticasone Propionate Na Spr 16 Gm Btl) 2 sprays NA DAILY [facility] Stop: 05/19/21 08:59 Last Admin: 04/22/21 09:06 Dose: 2 sprays Documented by: Glucagon (Glucagon For Inj 1 Mg Vial) 1 mg IM UD PRN; Protocol PRN Reason: Hypoglycemia Protocol Stop: 05/19/21 00:14 Glucose (Glucose 40% Gel 15 Gm Tube) 15 - 30 gm PO UD PRN; Protocol PRN Reason: Hypoglycemia Protocol Stop: 05/19/21 00:14 Glucose (Glucose 10 Tabs/Tube) 4 - 8 tabs PO UD PRN; Protocol PRN Reason: Hypoglycemia Protocol Stop: 05/19/21 00:14 Guaifenesin (Guaifenesin 600 Mg Tabcr) 600 mg PO Q12 [facility] Stop: 05/20/21 20:59 Last Admin: 04/22/21 09:02 Dose: 600 mg Documented by: Remdesivir 100 mg/ Sodium (Chloride) 250 mls @ 250 mls/hr IV Q24H [facility]; Protocol Stop: 04/22/21 20:59 Last Infusion: 04/21/21 22:38 Dose: Infused Documented by: Dexamethasone 6 mg/ Syringe 1.5 mls @ 1 mls/min IV DAILY [facility] Stop: 04/29/21 08:59 Last Admin: 04/22/21 09:02 Dose: 1 mls/min Documented by: Doxycycline Hyclate 100 mg/ (Dextrose) 110 mls @ 50 mls/hr IV Q12H [facility] Stop: 04/26/21 00:00 Last Infusion: 04/22/21 02:25 Dose: Infused Documented by: Piperacillin Sod/Tazobactam (Sod 3.375 gm/ Dextrose) 115 mls @ 28.75 mls/hr IV Q8H [facility]; Protocol Stop: 04/26/21 09:59 Last Admin: 04/22/21 09:38 Dose: 28.8 mls/hr Documented by: Insulin Aspart (Insulin Aspart Per Unit) 0 units SC ACHS [facility] Stop: 05/19/21 07:29 Last Admin: 04/22/21 09:19 Dose: 3 units Documented by: Lactobacillus Acidoph/Casei/Rhamnos (Advanced Probiotic 1250 Mg Capsule) 2 cap PO DAILY [facility] Stop: 05/20/21 16:29 Last Admin: 04/22/21 09:04 Dose: 2 cap Documented by: Levothyroxine Sodium (Levothyroxine Sodium 175 Mcg Tablet) 175 mcg PO DAILYBB [facility] Stop: 05/19/21 06:29 Last Admin: 04/22/21 06:38 Dose: 175 mcg Documented by: Magnesium Oxide (Magnesium Oxide 400 Mg Tab) 400 mg PO QAM [facility] Stop: 05/21/21 08:59 Last Admin: 04/22/21 09:05 Dose: 400 mg Documented by: Metoprolol Tartrate (Metoprolol Tartrate 100 Mg Tab) 100 mg PO BID [facility] Stop: 05/19/21 08:59 Last Admin: 04/22/21 09:05 Dose: 100 mg Documented by: Miscellaneous (Carbohydrates For Hypoglycemia ) 15 - 30 gm PO UD PRN PRN Reason: Hypoglycemia Treatment Stop: 05/19/21 00:14 Miscellaneous Information (Piperacill/Tazobac Consult Active) 1 ea N/A UD PRN PRN Reason: Consult Stop: 05/19/21 02:03 Multivitamins/Minerals (Cerovite Adv Formula Tab) 1 tab PO QAM [facility] Stop: 05/19/21 08:59 Last Admin: 04/22/21 09:05 Dose: 1 tab Documented by: Nitroglycerin (Nitroglycerin Sl 0.4 Mg/Tab Tab) 0.4 mg SL UD PRN PRN Reason: Chest Pain Stop: 05/18/21 22:58 Pantoprazole Sodium (Pantoprazole 40 Mg Tab) 40 mg PO DAILY [facility] Stop: 05/19/21 08:59 Last Admin: 04/22/21 09:03 Dose: 40 mg Documented by: Sodium Chloride (Sodium Chloride 0.9% 10ml Flush) 30 ml IV Q24H [facility] Stop: 04/22/21 23:00 Last Admin: 04/21/21 22:37 Dose: 30 ml Documented by: Thiamine HCl (Thiamine Hcl 100 Mg Tab) 100 mg PO QAM [facility] Stop: 05/19/21 08:59 Last Admin: 04/22/21 09:02 Dose: 100 mg Documented by:
[2021-04-22] MEDS: REMDESIVIR 100 MG in SODIUM CHLORIDE 0.9% 230 ML IV SCH (20:36)
[2021-04-22] MEDS: SODIUM CHLORIDE 0.9% 10ML FLUSH IV SCH (23:00)
[2021-04-23] MEDS: PIPERACILLIN/TAZOBACTAM 3.375 GM in DEXTROSE 5% 100 ML IV SCH ×3 (01:47→17:20)
[2021-04-23] MEDS: LEVOTHYROXINE SODIUM 175 MCG TABLET PO SCH (05:30)
[2021-04-23 06:49] LABS: Hematocrit (blood only) 42.9 % (42-52); Hemoglobin 14.7 g/dL (14.0-18.0); Mean Corpuscular Hemoglobin 32.3 pg (25-34); Mean Corpuscular Hgb Conc 34.3 g/dL (32-36); Mean Corpuscular Volume 94.3 fL (80-100); Platelet Count 634 K/uL (130-400); RDW Coefficient of Variation 13.2 % (11.5-14.5); RDW Standard Deviation 45.2 fL (36.4-46.3); Red Blood Count 4.55 M/uL (4.7-6.1); White Blood Count 10.86 K/uL (4.8-10.8)
[2021-04-23 07:23] LABS: BUN Creatinine Ratio 20.3 (10-20); Calcium 9.1 mg/dl (8.5-10.1); Creatinine Clr Calc Pharmacy 93.8 ml/min; Est GFR (African American) 102.3 ml/min; Est GFR (Non-African American) 88.3 ml/min; Phosphorus 2.6 mg/dl (2.5-4.9); Potassium 3.6 mmol/L (3.5-5.1)
[2021-04-23] MEDS: dexAMETHasone 6 MG in SYRINGE 0 ML IV SCH (08:15)
[2021-04-23] MEDS: MAGNESIUM OXIDE 400 MG TAB PO SCH (08:15)
[2021-04-23] MEDS: ENOXAPARIN INJ 40 MG/0.4 ML SYR SQ SCH (08:15)
[2021-04-23] MEDS: FLUTICASONE PROPIONATE NA SPR 16 GM BTL SCH (08:16)
[2021-04-23] MEDS: METOPROLOL TARTRATE 100 MG TAB PO SCH ×2 (08:16→20:51)
[2021-04-23] MEDS: ADVANCED PROBIOTIC 1250 MG CAPSULE PO SCH (08:16)
[2021-04-23] MEDS: guaiFENesin 600 MG TABCR PO SCH ×2 (08:16→20:51)
[2021-04-23] MEDS: FEXOFENADINE HCL 180 MG TAB PO SCH (08:16)
[2021-04-23] MEDS: ASPIRIN 81 MG ECTAB PO SCH (08:17)
[2021-04-23] MEDS: CEROVITE ADV FORMULA TAB PO SCH (08:17)
[2021-04-23] MEDS: THIAMINE HCL 100 MG TAB PO SCH (08:17)
[2021-04-23] MEDS: ATORVASTATIN 40 MG TAB PO SCH (08:17)
[2021-04-23] MEDS: allopurinoL 300 MG TAB PO SCH (08:18)
[2021-04-23] MEDS: PANTOprazole 40 MG TAB PO SCH (08:19)
[2021-04-23] MEDS: FENOFIBRATE NANOCRYSTALLIZED 145 MG TABLET PO SCH (08:19)
[2021-04-23] MEDS: FLUTICASONE FUROATE 100MCG 14 PUFFS/INHALER INH SCH (08:19)
[2021-04-23] MEDS: DULoxetine HCL 60 MG CAP PO SCH (08:19)
[2021-04-23] MEDS: INSULIN ASPART PER UNIT SC SCH ×4 (08:46→20:28)
--- NOTE | 2021-04-23 09:19 | Hospitalist Progress Note ---
Date of Service April 23, 2021 Assessment & Plan (1) Pneumonia due to COVID-19 virus: Plan: New infection since his operation and discharge from the hospital between [place] and . Hypoxia present. Currently on 4-5 L of oxygen via nasal cannula Cont. remdesivir up to 5 days and dexamethasone up to 10 days. Last day of remdesivir - April 22 Continue these therapies and supportive care as needed. Patient unable to prone secondary to current surgical site. (2) Post-operative state: Plan: Recently completed a 6-day course of levofloxacin 750 mg p.o. daily and Augmentin twice daily per his surgeon, Dr. Vic Lacey-general surgeon out of [facility]. Pt is s/p laparoscopic cholecystectomy, date unknown with MARIBEL drains in place x3. reports touching base with surgeon outpatient office and they requested a follow-up on Thursday. Currently there is no fever or signs of abdominal pain or infection. He remains on Zosyn and doxycycline. Contacted patient's surgeon, Dr. Lacey, (his cell phone is [phone]), for update, and guidance regarding MARIBEL drain management versus removal. Reported that patient had severe cholecystitis, cholangitis, gram-negative bacteria found on gallbladder pathology, however patient did finish antibiotic treatment. Patient also had pneumonia. Dr. Lacey recommended to take out one of the drains, that has minimal drainage, #3. The drain was removed on April 22 evening. He also recommended HIDA scan in 1 to 2 days, as patient had biliary leak. HIDA scan was ordered for tomorrow (04/24). (3) DMII (diabetes mellitus, type 2): Plan: Chronic, A1c of 6.5 reflects good control. Continue insulin per inpatient protocol. Currently euglycemic. (4) Depression: Plan: Chronic, stable, continue duloxetine per home regimen. (5) SUMMER (obstructive sleep apnea): Plan: CPAP qHS (6) DVT prophylaxis: Plan: Lovenox Full code Disposition-to home when medically stable and hypoxia has resolved. Admission and Anticipated Discharge Date Admission Date: April 18, 2021 Subjective 70 yo M recently hospitalized for acute cholecystitis s/p lap choly worsening symptoms admitted for COVID-pneumonia. Pt is sitting up in bed, in NAD Continues to use 4 -5 L of supplemental oxygen Denies any abdominal pain Denies any fevers, chills, chest pain, incr. shortness of breath Pt's was contacted to clarify instructions from his surgeon, Vic Cornejo from [facility], [place], [place], states pt was on levofloxacin 750 mg daily x7 days, Augmentin twice daily x7 days and that he had completed 6 days prior to admission to [facility]. She states he had a postoperative follow-up in the office by Dr. Lacey who decided to leave the drains in and sent him back for imaging and blood work to the ER. He was sent home from the [facility] [facility] and the following day was admitted to [facility]. states surgical nurse contacted her and set up follow-up for patient for next Thursday has been made no mention of MARIBEL drains status Talked to Dr. Lacey, his cell phone is [phone], who says that he is available at any time for further consultation. Reported that patient had severe cholecystitis, cholangitis, gram-negative bacteria found on gallbladder pathology, however patient did finish antibiotic treatment. Patient also had pneumonia. Dr. Lacey recommended to take out one of the drains, that has minimal drainage, #3. The drain was removed on April 22 evening. He also recommended HIDA scan in 1 to 2 days, as patient had biliary leak. HIDA scan was ordered for tomorrow. Review of Systems Review of Systems: All systems reviewed & are unremarkable except as noted in Subjective Physical Exam Physical Exam: CONSTITUTIONAL: W N/WD, in NAD, on 4 -5L of O2 EYES: n ormal conjunctivae , no scleral icter us ENT: external ear and nose helen l, MMM NECK:suppl e RESPIRATORY:Azael ewhat diminished b reath sounds, no w heezes, normal res piratory effort CA RDIOVASCULAR: reg ular rate and rhyt hm, S1 and 2 heard without murmurs, gallops or rubs, n o JVD, no peripher al edema CHEST: i nspection of chest was normal GASTRO INTESTINAL: soft, nontender, nondis tended, no guardin g, +MARIBEL drain x [address] (1 MARIBEL tahmina una on 04/22), mini mal drainage MUSCU LOSKELETAL: stren gth 5/5 throughout , head is normocep halic and atraumat ic, neck supple SK IN: warm and dry NEUROLOGIC:Alert and oriented, answ ering questions ap propriately, no fa cial asymmetry, sp eech fluent, motor extremities PSYCH IATRIC: alert coordinator of library services perative and orien edison to person, loan ce and time. Results & Data Results & Data ([facility]) Vital Signs (Past 12 Hours) Vital Signs Temp Pulse Pulse Resp BP Pulse Ox 04/23/21 07:58 37 C 84 20 150/85 H 90 04/23/21 03:41 37.0 C 76 22 103/74 91 04/22/21 23:59 59 L 04/22/21 23:12 36.9 C 63 20 142/89 H 90 Laboratory Results 04/23/21 04/23/21 04/23/21 Range/Units 08:42 06:29 06:29 WBC 10.86 H (4.8-10.8) K/uL RBC 4.55 L (4.7-6.1) M/uL Hgb 14.7 (14.0-18.0) g/dL Hct 42.9 (42-52) % MCV 94.3 (80-100) fL MCH 32.3 (25-34) pg MCHC 34.3 (32-36) g/dL RDW Std Deviation 45.2 (36.4-46.3) fL RDW Coeff of Lennox 13.2 (11.5-14.5) % Plt Count 634 H (130-400) K/uL MPV 10.0 (7.4-10.4) fL Sodium 139 (136-145) mmol/L Potassium 3.6 (3.5-5.1) mmol/L Chloride 109 H (98-107) mmol/L Carbon Dioxide 23 (21-32) mmol/L Anion Gap 7.0 (3-11) BUN 18 (7-18) mg/dl Creatinine 0.88 (0.6-1.4) mg/dl Est Cr Clr Drug Dosing 93.8 ml/min Est GFR ( Amer) 102.3 ml/min Est GFR (Non-Af Amer) 88.3 ml/min BUN/Creatinine Ratio 20.3 H (10-20) Glucose 92 (70-99) mg/dl POC Glucose 98 (70-99) mg/dl Calcium 9.1 (8.5-10.1) mg/dl Phosphorus 2.6 (2.5-4.9) mg/dl Magnesium 2.0 (1.8-2.4) mg/dl AST 28 (15-37) U/L ALT 31 (12-78) 04/22/21 04/22/21 04/22/21 Range/Units 19:47 16:31 11:42 WBC (4.8-10.8) K/uL RBC (4.7-6.1) M/uL Hgb (14.0-18.0) g/dL Hct (42-52) % MCV (80-100) fL MCH (25-34) pg MCHC (32-36) g/dL RDW Std Deviation (36.4-46.3) fL RDW Coeff of Lennox (11.5-14.5) % Plt Count (130-400) K/uL MPV (7.4-10.4) fL Sodium (136-145) mmol/L Potassium (3.5-5.1) mmol/L Chloride (98-107) mmol/L Carbon Dioxide (21-32) mmol/L Anion Gap (3-11) BUN (7-18) mg/dl Creatinine (0.6-1.4) mg/dl Est Cr Clr Drug Dosing ml/min Est GFR ( Amer) ml/min Est GFR (Non-Af Amer) ml/min BUN/Creatinine Ratio (10-20) Glucose (70-99) mg/dl POC Glucose 167 H 147 H 176 H (70-99) mg/dl Calcium (8.5-10.1) mg/dl Phosphorus (2.5-4.9) mg/dl Magnesium (1.8-2.4) mg/dl AST (15-37) U/L ALT (12-78) 04/22/21 04/22/21 Range/Units 09:27 09:27 WBC 8.51 (4.8-10.8) K/uL RBC 4.79 (4.7-6.1) M/uL Hgb 15.4 (14.0-18.0) g/dL Hct 45.4 (42-52) % MCV 94.8 (80-100) fL MCH 32.2 (25-34) pg MCHC 33.9 (32-36) g/dL RDW Std Deviation 45.8 (36.4-46.3) fL RDW Coeff of Lennox 13.3 (11.5-14.5) % Plt Count 571 H (130-400) K/uL MPV 10.2 (7.4-10.4) fL Sodium 138 (136-145) mmol/L Potassium 3.8 (3.5-5.1) mmol/L Chloride 107 (98-107) mmol/L Carbon Dioxide 24 (21-32) mmol/L Anion Gap 7.0 (3-11) BUN 20 H (7-18) mg/dl Creatinine 0.91 (0.6-1.4) mg/dl Est Cr Clr Drug Dosing 90.7 ml/min Est GFR ( Amer) 100.0 ml/min Est GFR (Non-Af Amer) 86.3 ml/min BUN/Creatinine Ratio 21.6 H (10-20) Glucose 139 H (70-99) mg/dl POC Glucose (70-99) mg/dl Calcium 9.1 (8.5-10.1) mg/dl Phosphorus (2.5-4.9) mg/dl Magnesium (1.8-2.4) mg/dl AST 34 (15-37) U/L ALT 36 (12-78) Medications Administered Current Inpatient Medications Acetaminophen (Acetaminophen 325 Mg Tab) 650 mg PO Q4H PRN PRN Reason: Pain or Fever Stop: 05/18/21 22:58 Albuterol (Albuterol Hfa 8 Gm Inhaler) 2 puffs INH Q4H PRN PRN Reason: Shortness Of Breath Or Wheezin Stop: 05/18/21 22:58 Allopurinol (Allopurinol 300 Mg Tab) 300 mg PO DAILY REPLACED BY [facility] Stop: 05/19/21 08:59 Last Admin: 04/23/21 08:18 Dose: 300 mg Documented by: Aspirin (Aspirin 81 Mg Ectab) 81 mg PO DAILY REPLACED BY [facility] Stop: 05/19/21 08:59 Last Admin: 04/23/21 08:17 Dose: 81 mg Documented by: Atorvastatin Calcium (Atorvastatin 40 Mg Tab) 40 mg PO DAILY REPLACED BY [facility] Stop: 05/19/21 08:59 Last Admin: 04/23/21 08:17 Dose: 40 mg Documented by: Dextrose (Dextrose 50% 50 Ml Syringe) 25 - 50 ml IV UD PRN; Protocol PRN Reason: Hypoglycemia Protocol Stop: 05/19/21 00:14 Duloxetine HCl (Duloxetine Hcl 60 Mg Cap) 60 mg PO DAILY SABRINA Stop: 05/19/21 08:59 Last Admin: 04/23/21 08:19 Dose: 60 mg Documented by: Enoxaparin Sodium (Enoxaparin Inj 40 Mg/0.4 Ml Syr) 40 mg SQ Q24H SABRINA Stop: 05/19/21 08:59 Last Admin: 04/23/21 08:15 Dose: 40 mg Documented by: Fenofibrate (Fenofibrate Nanocrystallized 145 Mg Tablet) 145 mg PO DAILY SABRINA Stop: 05/19/21 08:59 Last Admin: 04/23/21 08:19 Dose: 145 mg Documented by: Fexofenadine HCl (Fexofenadine Hcl 180 Mg Tab) 180 mg PO DAILY SABRINA Stop: 05/19/21 08:59 Last Admin: 04/23/21 08:16 Dose: 180 mg Documented by: Fluticasone Furoate (Fluticasone Furoate 100mcg 14 Puffs/Inhaler) 1 puffs INH QAM SABRINA Stop: 05/19/21 08:59 Last Admin: 04/23/21 08:19 Dose: 1 puffs Documented by: Fluticasone Propionate (Fluticasone Propionate Na Spr 16 Gm Btl) 2 sprays NA DAILY SABRINA Stop: 05/19/21 08:59 Last Admin: 04/23/21 08:16 Dose: 2 sprays Documented by: Glucagon (Glucagon For Inj 1 Mg Vial) 1 mg IM UD PRN; Protocol PRN Reason: Hypoglycemia Protocol Stop: 05/19/21 00:14 Glucose (Glucose 40% Gel 15 Gm Tube) 15 - 30 gm PO UD PRN; Protocol PRN Reason: Hypoglycemia Protocol Stop: 05/19/21 00:14 Glucose (Glucose 10 Tabs/Tube) 4 - 8 tabs PO UD PRN; Protocol PRN Reason: Hypoglycemia Protocol Stop: 05/19/21 00:14 Guaifenesin (Guaifenesin 600 Mg Tabcr) 600 mg PO Q12 SABRINA Stop: 05/20/21 20:59 Last Admin: 04/23/21 08:16 Dose: 600 mg Documented by: Dexamethasone 6 mg/ Syringe 1.5 mls @ 1 mls/min IV DAILY REPLACED BY [facility] Stop: 04/29/21 08:59 Last Admin: 04/23/21 08:15 Dose: 1 mls/min Documented by: Doxycycline Hyclate 100 mg/ (Dextrose) 110 mls @ 50 mls/hr IV Q12H REPLACED BY [facility] Stop: 04/26/21 00:00 Last Infusion: 04/23/21 01:48 Dose: Infused Documented by: Piperacillin Sod/Tazobactam (Sod 3.375 gm/ Dextrose) 115 mls @ 28.75 mls/hr IV Q8H REPLACED BY [facility]; Protocol Stop: 04/26/21 09:59 Last Infusion: 04/23/21 06:23 Dose: Infused Documented by: Insulin Aspart (Insulin Aspart Per Unit) 0 units SC ACHS REPLACED BY [facility] Stop: 05/19/21 07:29 Last Admin: 04/23/21 08:46 Dose: Not Given Documented by: Lactobacillus Acidoph/Casei/Rhamnos (Advanced Probiotic 1250 Mg Capsule) 2 cap PO DAILY REPLACED BY [facility] Stop: 05/20/21 16:29 Last Admin: 04/23/21 08:16 Dose: 2 cap Documented by: Levothyroxine Sodium (Levothyroxine Sodium 175 Mcg Tablet) 175 mcg PO DAILYBB REPLACED BY [facility] Stop: 05/19/21 06:29 Last Admin: 04/23/21 05:30 Dose: 175 mcg Documented by: Magnesium Oxide (Magnesium Oxide 400 Mg Tab) 400 mg PO QAM REPLACED BY [facility] Stop: 05/21/21 08:59 Last Admin: 04/23/21 08:15 Dose: 400 mg Documented by: Metoprolol Tartrate (Metoprolol Tartrate 100 Mg Tab) 100 mg PO BID REPLACED BY [facility] Stop: 05/19/21 08:59 Last Admin: 04/23/21 08:16 Dose: 100 mg Documented by: Miscellaneous (Carbohydrates For Hypoglycemia ) 15 - 30 gm PO UD PRN PRN Reason: Hypoglycemia Treatment Stop: 05/19/21 00:14 Miscellaneous Information (Piperacill/Tazobac Consult Active) 1 ea N/A UD PRN PRN Reason: Consult Stop: 05/19/21 02:03 Multivitamins/Minerals (Cerovite Adv Formula Tab) 1 tab PO QAM REPLACED BY [facility] Stop: 05/19/21 08:59 Last Admin: 04/23/21 08:17 Dose: 1 tab Documented by: Nitroglycerin (Nitroglycerin Sl 0.4 Mg/Tab Tab) 0.4 mg SL UD PRN PRN Reason: Chest Pain Stop: 05/18/21 22:58 Pantoprazole Sodium (Pantoprazole 40 Mg Tab) 40 mg PO DAILY REPLACED BY [facility] Stop: 05/19/21 08:59 Last Admin: 04/23/21 08:19 Dose: 40 mg Documented by: Thiamine HCl (Thiamine Hcl 100 Mg Tab) 100 mg PO QAM REPLACED BY [facility] Stop: 05/19/21 08:59 Last Admin: 04/23/21 08:17 Dose: 100 mg Documented by:
[2021-04-23] MEDS ORDERED: POTASSIUM CHLORIDE CRTAB 20 MEQ TABCR PO STA (09:20)
[2021-04-23] MEDS: DOXYCYCLINE HYCLATE 100 MG in DEXTROSE 5% 100 ML IV SCH (13:19)
--- NOTE | 2021-04-23 15:59 | Nuclear Medicine Report ---
NM hepatobiliary CLINICAL HISTORY: 70 years-old Male with hx of biliary leak. Acute right upper quadrant abdominal pa in with history of cholecystectomy. TECHNIQUE: Sequential anterior abdominal images were obtained through 60 minutes following the intra venous administration of 5.5 mCi of technetium-99m Choletec. COMPARISON: FINDINGS: There is prompt, uniform accumulation of the tracer by the liver. There is normal filling of the int rahepatic ducts, common bile duct and normal excretion of the tracer into the duodenum. The gallblad mariel is reportedly surgically absent. No extravasation of tracer within the abdominal cavity to sugges t a bile leak. A 15 minute anterior image obtained after the patient was lying on their side for 15 m inutes demonstrates tracer activity within a drain tube. IMPRESSION: Findings compatible with a bile leak confirmed by tracer activity within the MARIBEL drainage catheter.. ACT 112: Negative or not required by law. The above report was generated using voice recognition software. It may contain grammatical, syntax o r spelling errors. Electronically signed by: Darrion Ulrich M.D. 04/23/2021 3:58 PM
[2021-04-24] MEDS: DOXYCYCLINE HYCLATE 100 MG in DEXTROSE 5% 100 ML IV SCH ×2 (00:45→16:04)
[2021-04-24] MEDS: PIPERACILLIN/TAZOBACTAM 3.375 GM in DEXTROSE 5% 100 ML IV SCH ×3 (03:46→18:23)
[2021-04-24] MEDS: LEVOTHYROXINE SODIUM 175 MCG TABLET PO SCH (06:03)
[2021-04-24 07:05] LABS: Hematocrit (blood only) 43.6 % (42-52); Hemoglobin 15.1 g/dL (14.0-18.0); Mean Corpuscular Hemoglobin 32.8 pg (25-34); Mean Corpuscular Hgb Conc 34.6 g/dL (32-36); Mean Corpuscular Volume 94.6 fL (80-100); Mean Platelet Volume 10.2 fL (7.4-10.4); Platelet Count 637 K/uL (130-400); RDW Coefficient of Variation 13.3 % (11.5-14.5); RDW Standard Deviation 45.8 fL (36.4-46.3); Red Blood Count 4.61 M/uL (4.7-6.1); White Blood Count 11.53 K/uL (4.8-10.8)
[2021-04-24 07:35] LABS: BUN Creatinine Ratio 26.3 (10-20); Calcium 8.8 mg/dl (8.5-10.1); Creatinine Clr Calc Pharmacy 108.6 ml/min; Est GFR (African American) 108.7 ml/min; Est GFR (Non-African American) 93.7 ml/min; Magnesium 1.8 mg/dl (1.7-2.4); Phosphorus 2.8 mg/dl (2.5-4.9); Potassium 3.9 mmol/L (3.5-5.1)
[2021-04-24] MEDS: FLUTICASONE FUROATE 100MCG 14 PUFFS/INHALER INH SCH (08:41)
[2021-04-24] MEDS: FLUTICASONE PROPIONATE NA SPR 16 GM BTL SCH (08:41)
[2021-04-24] MEDS: allopurinoL 300 MG TAB PO SCH (08:42)
[2021-04-24] MEDS: ATORVASTATIN 40 MG TAB PO SCH (08:43)
[2021-04-24] MEDS: ASPIRIN 81 MG ECTAB PO SCH (08:43)
[2021-04-24] MEDS: dexAMETHasone 6 MG in SYRINGE 0 ML IV SCH (08:43)
[2021-04-24] MEDS: FEXOFENADINE HCL 180 MG TAB PO SCH (08:44)
[2021-04-24] MEDS: FENOFIBRATE NANOCRYSTALLIZED 145 MG TABLET PO SCH (08:44)
[2021-04-24] MEDS: ENOXAPARIN INJ 40 MG/0.4 ML SYR SQ SCH (08:44)
[2021-04-24] MEDS: DULoxetine HCL 60 MG CAP PO SCH (08:44)
[2021-04-24] MEDS: guaiFENesin 600 MG TABCR PO SCH ×2 (08:45→20:32)
[2021-04-24] MEDS: ADVANCED PROBIOTIC 1250 MG CAPSULE PO SCH (08:45)
[2021-04-24] MEDS: METOPROLOL TARTRATE 100 MG TAB PO SCH ×2 (08:45→20:32)
[2021-04-24] MEDS: MAGNESIUM OXIDE 400 MG TAB PO SCH (08:45)
[2021-04-24] MEDS: CEROVITE ADV FORMULA TAB PO SCH (08:45)
[2021-04-24] MEDS: PANTOprazole 40 MG TAB PO SCH (08:45)
[2021-04-24] MEDS: THIAMINE HCL 100 MG TAB PO SCH (08:46)
[2021-04-24] MEDS: INSULIN ASPART PER UNIT SC SCH ×4 (08:52→22:38)
--- NOTE | 2021-04-24 22:50 | Hospitalist Progress Note ---
Date of Service April 24, 2021 Assessment & Plan (1) Pneumonia due to COVID-19 virus: Plan: Present on admission with worsening shortness of breath New infection since his operation and discharge from the hospital between [place] and . Tested positive for COVID-19 Chest x-ray showed multifocal airspace opacities may represent atelectasis, pneumonia, and/or aspiration. Completed the course of remdesivir on April 22 Continue dexamethasone to complete 10-day course Continue oxygen supplement with 5 L nasal cannula We will continue to wean off oxygen Continue encourage patient to prone Continue monitor closely (2) Post-operative state: Plan: Recently completed a 6-day course of levofloxacin 750 mg p.o. daily and Augmentin twice daily per his surgeon, Dr. Vic Lacey-general surgeon out of [facility]. Pt is s/p laparoscopic cholecystectomy, date unknown with MARIBEL drains in place x3. reports touching base with surgeon outpatient office and they requested a follow-up on Thursday. Currently there is no fever or signs of abdominal pain or infection. He remains on Zosyn and doxycycline. Previous hospitalist contacted patient's surgeon, Dr. Lacey, (his cell phone is [phone]), for update, and guidance regarding MARIBEL drain management versus removal. Reported that patient had severe cholecystitis, cholangitis, gram-negative bacteria found on gallbladder pathology, however patient did finish antibiotic treatment. Patient also had pneumonia. Dr. Lacey recommended to take out one of the drains, that has minimal drainage, #3. The drain was removed on April 22 evening. He also recommended HIDA scan HIDA scan findings compatible with a bile leak confirmed by tracer activity within the MARIBEL drainage catheter Dr. Lacey contacted our staff and suggested for patient to get an ERCP for the bile leak in 1 to 2 weeks ( since pt is COVID 19 positive) Called and texted Dr. Lacey today to discuss about the HIDA scan result, unfortunately no response to. We will try to call Dr. Lacey again tomorrow Continue monitor (3) DMII (diabetes mellitus, type 2): Plan: Chronic, A1c of 6.5 reflects good control. Continue insulin per inpatient protocol. Continue monitor blood sugar (4) Depression: Plan: Chronic, stable, continue duloxetine per home regimen. (5) SUMMER (obstructive sleep apnea): Plan: CPAP qHS (6) DVT prophylaxis: Plan: Lovenox Full code Disposition-to home when medically stable and hypoxia has resolved. Admission and Anticipated Discharge Date Admission Date: April 18, 2021 Subjective Patient was seen and examined for follow-up of shortness of breath due to COVID- 19 Sitting in chair with no acute distress watching TV Continue to require 5 L oxygen nasal cannula Patient said breathing stable Denies any fevers, chills, chest pain, incr. shortness of breath Review of Systems Review of Systems: All systems reviewed & are unremarkable except as noted in Subjective Physical Exam Physical Exam: General- No acute distress Head- atraumatic Eyes- PERRL, EOMI, ENT- oropharynx clear Neck- supple, no JVD Lungs- +diminished BS Heart- regular rhythm; no murmur Abdomen- normal bowel sounds, soft, nontender Extremities- no calf tenderness Neuro- alert, oriented x 3; PERRL, EOMI; no facial palsy; no dysarthria Skin- warm & dry Results & Data Results & Data ([facility]) Vital Signs (Past 12 Hours) Vital Signs Temp Pulse Pulse Resp BP Pulse Ox 04/24/21 20:21 36.7 C 92 H 24 128/91 91 04/24/21 18:14 16 93 04/24/21 16:00 84 04/24/21 15:34 36.6 C 75 18 129/90 92
[2021-04-25] MEDS: DOXYCYCLINE HYCLATE 100 MG in DEXTROSE 5% 100 ML IV SCH ×2 (00:02→12:30)
[2021-04-25] MEDS: PIPERACILLIN/TAZOBACTAM 3.375 GM in DEXTROSE 5% 100 ML IV SCH ×3 (02:46→17:29)
[2021-04-25] MEDS: LEVOTHYROXINE SODIUM 175 MCG TABLET PO SCH (06:23)
[2021-04-25 07:41] LABS: Hematocrit (blood only) 44.8 % (42-52); Hemoglobin 15.2 g/dL (14.0-18.0); Mean Corpuscular Hgb Conc 33.9 g/dL (32-36); Mean Corpuscular Volume 94.3 fL (80-100); Mean Platelet Volume 9.9 fL (7.4-10.4); Platelet Count 634 K/uL (130-400); RDW Coefficient of Variation 13.4 % (11.5-14.5); RDW Standard Deviation 46.3 fL (36.4-46.3); Red Blood Count 4.75 M/uL (4.7-6.1); White Blood Count 11.06 K/uL (4.8-10.8)
[2021-04-25 08:18] LABS: BUN Creatinine Ratio 25.9 (10-20); Calcium 8.9 mg/dl (8.5-10.1); Creatinine Clr Calc Pharmacy 88.6 ml/min; Est GFR (African American) 103.8 ml/min; Est GFR (Non-African American) 89.5 ml/min; Potassium 3.9 mmol/L (3.5-5.1)
[2021-04-25] MEDS: dexAMETHasone 6 MG in SYRINGE 0 ML IV SCH (09:09)
[2021-04-25] MEDS: METOPROLOL TARTRATE 100 MG TAB PO SCH ×2 (09:09→21:05)
[2021-04-25] MEDS: guaiFENesin 600 MG TABCR PO SCH ×2 (09:09→21:04)
[2021-04-25] MEDS: ADVANCED PROBIOTIC 1250 MG CAPSULE PO SCH (09:10)
[2021-04-25] MEDS: CEROVITE ADV FORMULA TAB PO SCH (09:10)
[2021-04-25] MEDS: FLUTICASONE PROPIONATE NA SPR 16 GM BTL SCH (09:10)
[2021-04-25] MEDS: FENOFIBRATE NANOCRYSTALLIZED 145 MG TABLET PO SCH (09:10)
[2021-04-25] MEDS: DULoxetine HCL 60 MG CAP PO SCH (09:10)
[2021-04-25] MEDS: FEXOFENADINE HCL 180 MG TAB PO SCH (09:10)
[2021-04-25] MEDS: allopurinoL 300 MG TAB PO SCH (09:10)
[2021-04-25] MEDS: ENOXAPARIN INJ 40 MG/0.4 ML SYR SQ SCH (09:10)
[2021-04-25] MEDS: ASPIRIN 81 MG ECTAB PO SCH (09:11)
[2021-04-25] MEDS: FLUTICASONE FUROATE 100MCG 14 PUFFS/INHALER INH SCH (09:11)
[2021-04-25] MEDS: THIAMINE HCL 100 MG TAB PO SCH (09:11)
[2021-04-25] MEDS: MAGNESIUM OXIDE 400 MG TAB PO SCH (09:11)
[2021-04-25] MEDS: ATORVASTATIN 40 MG TAB PO SCH (09:11)
[2021-04-25] MEDS: PANTOprazole 40 MG TAB PO SCH (09:11)
[2021-04-25] MEDS: INSULIN ASPART PER UNIT SC SCH ×4 (09:12→21:30)
[2021-04-25 10:13] LABS: Basophils # (auto) 0.02 K/uL (0-0.2); Basophils % (auto) 0.2 %; Eosinophils % (auto) 1.7 %; Immature Granulocytes % (auto) 0.9 %; Lymphocytes # (auto) 1.93 K/uL (1.2-3.4); Lymphocytes % (auto) 16.9 %; Monocytes # (auto) 0.77 K/uL (0.11-0.59); Monocytes % (auto) 6.7 %; Neutrophils # (auto) 8.42 K/uL (1.4-6.5); Neutrophils % (auto) 73.6 %
[2021-04-25 10:35] LABS: Albumin Level 3.2 gm/dl (3.4-5.0); Bilirubin Direct 0.2 mg/dl (0-0.2); Bilirubin,Total 0.7 mg/dl (0.2-1.0); Total Protein 7.2 gm/dl (6.0-8.3)
--- NOTE | 2021-04-25 12:40 | Gastrointestinal Consultation ---
Date of Consultation April 25, 2021 History of Present Illness Attending Physician: Francis Ocasio MD History of Present Illness Pt with gangrenous cholecystitis s/p cholecystectomy approximately 2 weeks ago at [facility] by Vic Lacey. Post surgery, he was noted to have a small amount of bile in MARIBEL, with HIDA scan as outpt showing bile leak. He had CT scan which did not show biloma. Outpt outside GI recommended conservative care. He is admitted now for COVID pneumonia. He is noted to have Bile in MARIBEL drainage, and HIDA scan on 04/23 shows persistent bile leak appears to be near cystic duct, with bile in MARIBEL. Pt denies any abdominal pain, n/v; he is eating with good appetite. PE: Mild resp insufficiency, o/w comfortable. O2 sat 92/5 liters, VSS/afeb. HEENT: Anicteric CV: RRR Resp: CTA Abd: non tender, bile in MARIBEL. WBC 11, LFT's WNL, On Zosyn. A/P: Bile leak s/p christopher, well drained by MARIBEL drain - Please keep MARIBEL drain in place. Due to tenuous resp status, will attempt to defer endoscopic intervention for now -- plan ERCP in 2-3 weeks. Diet as tolerated. Allergies Allergy/AdvReac Type Severity Reaction Status Date / Time No Known Drug Allergies Allergy Verified 02/01/19 11:12 Home Medications Medication Instructions Recorded Confirmed Type allopurinol 300 mg tablet 300 mg PO DAILY tab 01/25/19 04/18/21 History aspirin 81 mg tablet,delayed 81 mg PO DAILY tab 01/25/19 04/18/21 History release fenofibrate nanocrystallized 145 145 mg PO DAILY #90 tab 01/25/19 04/18/21 History mg tablet fexofenadine 180 mg tablet 180 mg PO DAILY tab 01/25/19 04/18/21 History fluticasone propionate 50 2 sprays INTRANASAL DAILY gm 01/25/19 04/18/21 History mcg/actuation nasal spray,suspension levothyroxine 175 mcg tablet 175 mcg PO .COMPLEX tab 01/25/19 04/18/21 History (Synthroid) metoprolol tartrate 100 mg tablet 100 mg PO BID tab 01/25/19 04/18/21 History omeprazole 20 mg tablet,delayed 20 mg PO DAILY tab 01/25/19 04/18/21 History release duloxetine 60 mg capsule,delayed 60 mg PO DAILY 02/01/19 04/18/21 History release sildenafil 100 mg tablet 100 mg PO DAILY PRN 02/01/19 04/18/21 History sulindac 200 mg tablet 200 mg PO BID 02/01/19 04/18/21 History amoxicillin 875 mg-potassium 1 tab PO BID 04/18/21 04/18/21 History clavulanate 125 mg tablet atorvastatin 40 mg tablet 40 mg PO DAILY 04/18/21 04/18/21 History levofloxacin 750 mg tablet 750 mg PO DAILY 04/18/21 04/18/21 History metformin 1,000 mg tablet 1,000 mg PO BIDM 04/18/21 04/18/21 History oxycodone 5 mg tablet 5 mg PO Q4 PRN 04/18/21 04/18/21 History Patient History Social History Smoking Status: Former smoker Second Hand Exposure: No; Do You Dip or Chew Tobacco: Yes; Tobacco Cessation Education Requested by Patient: No Hx Substance Use: No Preferred Language: Occitan Communication Ability: Effective Tub Puller Required: No Beliefs That Will Affect Care: None Current Living Situation: Spouse Other Information That Helps Us Care for You: No Feels Safe at Home: Yes Safety Concerns: Feels Safe At This Time Assistive Devices: Oxygen - Continuous Results & Data ([facility]) Vital Signs (Past 12 Hours) Vital Signs Temp Pulse Resp BP Pulse Ox 04/25/21 08:42 36.9 C 97 H 19 92 04/25/21 03:28 36.9 C 64 20 125/70 92
--- NOTE | 2021-04-25 18:36 | Hospitalist Progress Note ---
Date of Service April 25, 2021 Assessment & Plan (1) Pneumonia due to COVID-19 virus: Plan: Present on admission with worsening shortness of breath New infection since his operation and discharge from the hospital between [place] and . Tested positive for COVID-19 Chest x-ray showed multifocal airspace opacities may represent atelectasis, pneumonia, and/or aspiration. Completed the course of remdesivir on April 22 Continue dexamethasone to complete 10-day course Continue oxygen supplement with 5 L nasal cannula We will continue to wean off oxygen Continue encourage patient to prone Continue monitor closely (2) Post-operative state: Plan: Recently completed a 6-day course of levofloxacin 750 mg p.o. daily and Augmentin twice daily per his surgeon, Dr. Vic Lacey-general surgeon out of [facility]. Pt is s/p laparoscopic cholecystectomy, date unknown with MARIBEL drains in place x3. reports touching base with surgeon outpatient office and they requested a follow-up on Thursday. Currently there is no fever or signs of abdominal pain or infection. He remains on Zosyn and doxycycline. Previous hospitalist contacted patient's surgeon, Dr. Lacey, (his cell phone is [phone]), for update, and guidance regarding MARIBEL drain management versus removal. Reported that patient had severe cholecystitis, cholangitis, gram-negative bacteria found on gallbladder pathology, however patient did finish antibiotic treatment. Patient also had pneumonia. Dr. Lacey recommended to take out one of the drains, that has minimal drainage, #3. The drain was removed on April 22 evening. He also recommended HIDA scan HIDA scan findings compatible with a bile leak confirmed by tracer activity within the MARIBEL drainage catheter Dr. Lacey contacted our staff and suggested for patient to get an ERCP for the bile leak in 1 to 2 weeks ( since pt is COVID 19 positive) [address] Lacey that recommended ERCP in 1 to 2 week with GI GI consulted that recommended to keep MARIBEL drain in place. Continue conservative management for now Plan ERCP in 2-3 weeks Continue Diet as tolerated. (3) DMII (diabetes mellitus, type 2): Plan: Chronic, A1c of 6.5 reflects good control. Continue insulin per inpatient protocol. Continue monitor blood sugar (4) Depression: Plan: Chronic, stable, continue duloxetine per home regimen. (5) SUMMER (obstructive sleep apnea): Plan: CPAP qHS (6) DVT prophylaxis: Plan: Lovenox Full code Disposition-to home when medically stable and hypoxia has resolved. Admission and Anticipated Discharge Date Admission Date: April 18, 2021 Subjective Patient was seen and examined for follow-up of shortness of breath due to COVID- 19 Sitting in chair with no acute distress watching TV Continue to require 5 L oxygen nasal cannula Denies any fevers, chills, chest pain, incr. shortness of breath Review of Systems Review of Systems: All systems reviewed & are unremarkable except as noted in Subjective Physical Exam Physical Exam: General- No acute distress Head- atraumatic Eyes- PERRL, EOMI, ENT- oropharynx clear Neck- supple, no JVD Lungs- +diminished BS Heart- regular rhythm; no murmur Abdomen- normal bowel sounds, soft, nontender Extremities- no calf tenderness Neuro- alert, oriented x 3; PERRL, EOMI; no facial palsy; no dysarthria Skin- warm & dry Results & Data Results & Data ([facility]) Vital Signs (Past 12 Hours) Vital Signs Temp Pulse Resp BP Pulse Ox 04/25/21 16:23 36.9 C 80 18 130/83 92 04/25/21 12:55 36.4 C L 83 22 119/81 93 04/25/21 08:42 36.9 C 97 H 19 92
[2021-04-26] MEDS: DOXYCYCLINE HYCLATE 100 MG in DEXTROSE 5% 100 ML IV SCH (00:06)
[2021-04-26] MEDS: PIPERACILLIN/TAZOBACTAM 3.375 GM in DEXTROSE 5% 100 ML IV SCH (04:03)
[2021-04-26] MEDS: LEVOTHYROXINE SODIUM 175 MCG TABLET PO SCH (05:29)
[2021-04-26] MEDS: INSULIN ASPART PER UNIT SC SCH ×4 (08:28→20:41)
[2021-04-26] MEDS: PANTOprazole 40 MG TAB PO SCH (08:29)
[2021-04-26] MEDS: dexAMETHasone 6 MG in SYRINGE 0 ML IV SCH (08:29)
[2021-04-26] MEDS: METOPROLOL TARTRATE 100 MG TAB PO SCH ×2 (08:29→20:07)
[2021-04-26] MEDS: guaiFENesin 600 MG TABCR PO SCH ×2 (08:29→20:07)
[2021-04-26] MEDS: MAGNESIUM OXIDE 400 MG TAB PO SCH (08:30)
[2021-04-26] MEDS: ATORVASTATIN 40 MG TAB PO SCH (08:30)
[2021-04-26] MEDS: ASPIRIN 81 MG ECTAB PO SCH (08:30)
[2021-04-26] MEDS: DULoxetine HCL 60 MG CAP PO SCH (08:30)
[2021-04-26] MEDS: FENOFIBRATE NANOCRYSTALLIZED 145 MG TABLET PO SCH (08:30)
[2021-04-26] MEDS: allopurinoL 300 MG TAB PO SCH (08:30)
[2021-04-26] MEDS: FEXOFENADINE HCL 180 MG TAB PO SCH (08:30)
[2021-04-26] MEDS: ADVANCED PROBIOTIC 1250 MG CAPSULE PO SCH (08:30)
[2021-04-26] MEDS: CEROVITE ADV FORMULA TAB PO SCH (08:30)
[2021-04-26] MEDS: ENOXAPARIN INJ 40 MG/0.4 ML SYR SQ SCH (08:30)
[2021-04-26] MEDS: FLUTICASONE FUROATE 100MCG 14 PUFFS/INHALER INH SCH (08:31)
[2021-04-26] MEDS: FLUTICASONE PROPIONATE NA SPR 16 GM BTL SCH (08:31)
[2021-04-26] MEDS: THIAMINE HCL 100 MG TAB PO SCH (08:31)
--- NOTE | 2021-04-26 20:19 | Hospitalist Progress Note ---
Date of Service April 26, 2021 Assessment & Plan (1) Pneumonia due to COVID-19 virus: Plan: Present on admission with worsening shortness of breath New infection since his operation and discharge from the hospital between [place] and . Tested positive for COVID-19 Chest x-ray showed multifocal airspace opacities may represent atelectasis, pneumonia, and/or aspiration. Completed the course of remdesivir on April 22 Continue dexamethasone to complete 10-day course Continue oxygen supplement with 5 L nasal cannula We will continue to wean off oxygen Continue encourage patient to prone Continue monitor closely (2) Post-operative state: Plan: Recently completed a 6-day course of levofloxacin 750 mg p.o. daily and Augmentin twice daily per his surgeon, Dr. Vic Lacey-general surgeon out of [facility]. Pt is s/p laparoscopic cholecystectomy, date unknown with MARIBEL drains in place x3. reports touching base with surgeon outpatient office and they requested a follow-up on Thursday. Currently there is no fever or signs of abdominal pain or infection. He remains on Zosyn and doxycycline. Previous hospitalist contacted patient's surgeon, Dr. Lacey, (his cell phone is [phone]), for update, and guidance regarding MARIBEL drain management versus removal. Reported that patient had severe cholecystitis, cholangitis, gram-negative bacteria found on gallbladder pathology, however patient did finish antibiotic treatment. Patient also had pneumonia. Dr. Lacey recommended to take out one of the drains, that has minimal drainage, #3. The drain was removed on April 22 evening. He also recommended HIDA scan HIDA scan findings compatible with a bile leak confirmed by tracer activity within the MARIBEL drainage catheter Dr. Lacey contacted our staff and suggested for patient to get an ERCP for the bile leak in 1 to 2 weeks ( since pt is COVID [address] positive) [address] Lacey that recommended ERCP in 1 to 2 week with GI GI consulted that recommended to keep MARIBEL drain in place. Continue conservative management for now Completed the course of the antibiotic today with Zosyn Plan ERCP in 2-3 weeks Continue Diet as tolerated. (3) DMII (diabetes mellitus, type 2): Plan: Chronic, A1c of 6.5 reflects good control. Continue insulin per inpatient protocol. Continue monitor blood sugar (4) Depression: Plan: Chronic, stable, continue duloxetine per home regimen. (5) SUMMER (obstructive sleep apnea): Plan: CPAP qHS (6) DVT prophylaxis: Plan: Lovenox Full code Disposition-to home when medically stable and hypoxia has resolved. Admission and Anticipated Discharge Date Admission Date: April 18, 2021 Subjective Patient was seen and examined for follow-up of shortness of breath due to COVID- 19 Lying in bed with no acute distress watching TV Continue to require 5L oxygen nasal cannula He said that his breathing is much easy Denies any fevers, chills, chest pain, palpitation Review of Systems Review of Systems: All systems reviewed & are unremarkable except as noted in Subjective Physical Exam Physical Exam: General- No acute distress Head- atraumatic Eyes- PERRL, EOMI, ENT- oropharynx clear Neck- supple, no JVD Lungs- +diminished BS Heart- regular rhythm; no murmur Abdomen- normal bowel sounds, soft, nontender Extremities- no calf tenderness Neuro- alert, oriented x 3; PERRL, EOMI; no facial palsy; no dysarthria Skin- warm & dry Results & Data Results & Data ([facility]) Vital Signs (Past 12 Hours) Vital Signs Temp Pulse Pulse Pulse Resp BP Pulse Ox 04/26/21 20:01 36.8 C 89 19 120/89 93 04/26/21 16:08 36.5 C 76 18 151/100 H 93 04/26/21 16:00 76 04/26/21 11:31 36.6 C 78 18 128/85 89 L
[2021-04-27] MEDS: LEVOTHYROXINE SODIUM 175 MCG TABLET PO SCH (05:31)
[2021-04-27] MEDS: dexAMETHasone 6 MG in SYRINGE 0 ML IV SCH (08:29)
[2021-04-27] MEDS: THIAMINE HCL 100 MG TAB PO SCH (08:31)
[2021-04-27] MEDS: PANTOprazole 40 MG TAB PO SCH (08:31)
[2021-04-27] MEDS: FLUTICASONE FUROATE 100MCG 14 PUFFS/INHALER INH SCH (08:31)
[2021-04-27] MEDS: METOPROLOL TARTRATE 100 MG TAB PO SCH ×2 (08:31→20:15)
[2021-04-27] MEDS: CEROVITE ADV FORMULA TAB PO SCH (08:31)
[2021-04-27] MEDS: FLUTICASONE PROPIONATE NA SPR 16 GM BTL SCH (08:31)
[2021-04-27] MEDS: ATORVASTATIN 40 MG TAB PO SCH (08:32)
[2021-04-27] MEDS: ADVANCED PROBIOTIC 1250 MG CAPSULE PO SCH (08:32)
[2021-04-27] MEDS: ASPIRIN 81 MG ECTAB PO SCH (08:32)
[2021-04-27] MEDS: FENOFIBRATE NANOCRYSTALLIZED 145 MG TABLET PO SCH (08:32)
[2021-04-27] MEDS: MAGNESIUM OXIDE 400 MG TAB PO SCH (08:32)
[2021-04-27] MEDS: guaiFENesin 600 MG TABCR PO SCH ×2 (08:32→20:15)
[2021-04-27] MEDS: DULoxetine HCL 60 MG CAP PO SCH (08:32)
[2021-04-27] MEDS: ENOXAPARIN INJ 40 MG/0.4 ML SYR SQ SCH (08:32)
[2021-04-27] MEDS: FEXOFENADINE HCL 180 MG TAB PO SCH (08:32)
[2021-04-27] MEDS: allopurinoL 300 MG TAB PO SCH (08:32)
[2021-04-27 08:38] LABS: Hematocrit (blood only) 46.4 % (42-52); Hemoglobin 15.6 g/dL (14.0-18.0); Mean Corpuscular Hemoglobin 32.2 pg (25-34); Mean Corpuscular Hgb Conc 33.6 g/dL (32-36); Mean Corpuscular Volume 95.7 fL (80-100); Mean Platelet Volume 10.2 fL (7.4-10.4); Platelet Count 577 K/uL (130-400); RDW Coefficient of Variation 13.2 % (11.5-14.5); RDW Standard Deviation 46.2 fL (36.4-46.3); Red Blood Count 4.85 M/uL (4.7-6.1); White Blood Count 9.62 K/uL (4.8-10.8)
[2021-04-27] MEDS: INSULIN ASPART PER UNIT SC SCH ×4 (08:39→20:15)
[2021-04-27 09:09] LABS: BUN Creatinine Ratio 28.8 (10-20); Calcium 9.2 mg/dl (8.5-10.1); Creatinine Clr Calc Pharmacy 94.1 ml/min; Est GFR (African American) 106.4 ml/min; Est GFR (Non-African American) 91.8 ml/min; Potassium 3.9 mmol/L (3.5-5.1)
[2021-04-27] MEDS ORDERED: FUROSEMIDE INJ 20 MG/2 ML VIAL IV ONE (22:02)
--- NOTE | 2021-04-27 22:04 | Hospitalist Progress Note ---
Date of Service April 27, 2021 Assessment & Plan (1) Pneumonia due to COVID-19 virus: Plan: Present on admission with worsening shortness of breath New infection since his operation and discharge from the hospital between [place] and . Tested positive for COVID-19 Chest x-ray showed multifocal airspace opacities may represent atelectasis, pneumonia, and/or aspiration. Completed the course of remdesivir on April 22 Continue dexamethasone to complete 10-day course Continue oxygen supplement with 2 L nasal cannula We will continue to wean off oxygen Continue encourage patient to prone We will give Lasix 20 mg IV x1 Continue monitor closely (2) Post-operative state: Plan: Recently completed a 6-day course of levofloxacin 750 mg p.o. daily and Augmenti n twice daily per his surgeon, Dr. Vic Lacey-general surgeon out of [facility]. Pt is s/p laparoscopic cholecystectomy, date unknown with MARIBEL drains in place x3. reports touching base with surgeon outpatient office and they requested a follow-up on Thursday. Currently there is no fever or signs of abdominal pain or infection. He remains on Zosyn and doxycycline. Previous hospitalist contacted patient's surgeon, Dr. Lacey, (his cell phone is [phone]), for update, and guidance regarding MARIBEL drain management versus removal. Reported that patient had severe cholecystitis, cholangitis, gram-negative bacteria found on gallbladder pathology, however patient did finish antibiotic treatment. Patient also had pneumonia. Dr. Lacey recommended to take out one of the drains, that has minimal drainage, #3. The drain was removed on April 22 evening. He also recommended HIDA scan HIDA scan findings compatible with a bile leak confirmed by tracer activity within the MARIBEL drainage catheter Dr. Lacey contacted our staff and suggested for patient to get an ERCP for the bile leak in 1 to 2 weeks ( since pt is COVID [address] positive) [address] Lacey that recommended ERCP in 1 to 2 week with GI GI consulted that recommended to keep MARIBEL drain in place. Continue conservative management for now Completed the course of the antibiotic today with Zosyn Plan ERCP in 2-3 weeks Continue Diet as tolerated. (3) DMII (diabetes mellitus, type 2): Plan: Chronic, A1c of 6.5 reflects good control. Continue insulin per inpatient protocol. Continue monitor blood sugar (4) Depression: Plan: Chronic, stable, continue duloxetine per home regimen. (5) SUMMER (obstructive sleep apnea): Plan: CPAP qHS (6) DVT prophylaxis: Plan: Lovenox Full code Disposition-to home when medically stable and hypoxia has resolved. Admission and Anticipated Discharge Date Admission Date: April 18, 2021 Subjective Patient was seen and examined for follow-up of shortness of breath due to COVID- 19 Sitting in chair with no acute distress watching TV Currently on 2 L oxygen via nasal cannula He said that his breathing is getting better Denies any fevers, chills, chest pain, palpitation Review of Systems Review of Systems: All systems reviewed & are unremarkable except as noted in Subjective Physical Exam Physical Exam: General- No acute distress Head- atraumatic Eyes- PERRL, EOMI, ENT- oropharynx clear Neck- supple, no JVD Lungs- +diminished BS Heart- regular rhythm; no murmur Abdomen- normal bowel sounds, soft, nontender Extremities- no calf tenderness Neuro- alert, oriented x 3; PERRL, EOMI; no facial palsy; no dysarthria Skin- warm & dry Results & Data Results & Data ([facility]) Vital Signs (Past 12 Hours) Vital Signs Temp Pulse Pulse Resp BP Pulse Ox 04/27/21 19:42 37.0 C 94 H 18 125/69 93 04/27/21 16:09 36.9 C 80 18 121/84 95 04/27/21 15:00 75 04/27/21 12:30 37.0 C 75 18 118/84 92
[2021-04-28] MEDS: LEVOTHYROXINE SODIUM 175 MCG TABLET PO SCH (05:44)
[2021-04-28] MEDS: FLUTICASONE PROPIONATE NA SPR 16 GM BTL SCH (08:18)
[2021-04-28] MEDS: FLUTICASONE FUROATE 100MCG 14 PUFFS/INHALER INH SCH (08:18)
[2021-04-28] MEDS: ADVANCED PROBIOTIC 1250 MG CAPSULE PO SCH (08:21)
[2021-04-28] MEDS: dexAMETHasone 6 MG in SYRINGE 0 ML IV SCH (08:21)
[2021-04-28] MEDS: MAGNESIUM OXIDE 400 MG TAB PO SCH (08:22)
[2021-04-28] MEDS: PANTOprazole 40 MG TAB PO SCH (08:22)
[2021-04-28] MEDS: ENOXAPARIN INJ 40 MG/0.4 ML SYR SQ SCH (08:22)
[2021-04-28] MEDS: THIAMINE HCL 100 MG TAB PO SCH (08:22)
[2021-04-28] MEDS: FENOFIBRATE NANOCRYSTALLIZED 145 MG TABLET PO SCH (08:22)
[2021-04-28] MEDS: FEXOFENADINE HCL 180 MG TAB PO SCH (08:22)
[2021-04-28] MEDS: guaiFENesin 600 MG TABCR PO SCH ×2 (08:22→20:54)
[2021-04-28] MEDS: CEROVITE ADV FORMULA TAB PO SCH (08:22)
[2021-04-28] MEDS: DULoxetine HCL 60 MG CAP PO SCH (08:22)
[2021-04-28] MEDS: ATORVASTATIN 40 MG TAB PO SCH (08:22)
[2021-04-28] MEDS: ASPIRIN 81 MG ECTAB PO SCH (08:22)
[2021-04-28] MEDS: allopurinoL 300 MG TAB PO SCH (08:22)
[2021-04-28] MEDS: METOPROLOL TARTRATE 100 MG TAB PO SCH ×2 (08:23→20:54)
[2021-04-28] MEDS: INSULIN ASPART PER UNIT SC SCH ×4 (08:33→20:49)
--- NOTE | 2021-04-28 17:41 | Hospitalist Progress Note ---
Date of Service April 28, 2021 Assessment & Plan (1) Pneumonia due to COVID-19 virus: Plan: Present on admission with worsening shortness of breath New infection since his operation and discharge from the hospital between [place] and . Tested positive for COVID-19 Chest x-ray showed multifocal airspace opacities may represent atelectasis, pneumonia, and/or aspiration. Completed the course of remdesivir on April 22 Continue dexamethasone to complete 10-day course or until discharge Wean off of oxygen supplement and currently saturated well on RA Will get a 2 step exercise tomorrow Clinically improves significantly (2) Post-operative state: Plan: Recently completed a 6-day course of levofloxacin 750 mg p.o. daily and Augmentin twice daily per his surgeon, Dr. Vic Lacey-general surgeon out of [facility]. Pt is s/p laparoscopic cholecystectomy, date unknown with MARIBEL drains in place x3. reports touching base with surgeon outpatient office and they requested a follow-up on Thursday. Currently there is no fever or signs of abdominal pain or infection. He remains on Zosyn and doxycycline. Previous hospitalist contacted patient's surgeon, Dr. Lacey, (his cell phone is [phone]), for update, and guidance regarding MARIBEL drain management versus removal. Reported that patient had severe cholecystitis, cholangitis, gram-negative bacteria found on gallbladder pathology, however patient did finish antibiotic treatment. Patient also had pneumonia. Dr. Lacey recommended to take out one of the drains, that has minimal drainage, #3. The drain was removed on April 22 evening. He also recommended HIDA scan HIDA scan findings compatible with a bile leak confirmed by tracer activity within the MARIBEL drainage catheter Dr. Lacey contacted our staff and suggested for patient to get an ERCP for the bile leak in 1 to 2 weeks ( since pt is COVID [address] positive) [address] Lacey that recommended ERCP in 1 to 2 week with GI GI consulted that recommended to keep MARIBEL drain in place. Continue conservative management for now Completed the course of the antibiotic today with Zosyn Plan ERCP in 2-3 weeks Continue Diet as tolerated. (3) DMII (diabetes mellitus, type 2): Plan: Chronic, A1c of 6.5 reflects good control. Continue insulin per inpatient protocol. Continue monitor blood sugar (4) Depression: Plan: Chronic, stable, continue duloxetine per home regimen. (5) SUMMER (obstructive sleep apnea): Plan: CPAP qHS (6) DVT prophylaxis: Plan: Lovenox CODE STATUS Full code Disposition Will get 2 step tomorrow Plan to discharge tomorrow if medically stable Admission and Anticipated Discharge Date Admission Date: April 18, 2021 Subjective Patient was seen and examined for follow-up of shortness of breath due to COVID- 19 Sitting in chair with no acute distress watching TV Pt said that he feels much better He has been saturated well on RA since this morning Denies any fevers, chills, chest pain, palpitation Review of Systems Review of Systems: All systems reviewed & are unremarkable except as noted in Subjective Physical Exam Physical Exam: General- No acute distress Head- atraumatic Eyes- PERRL, EOMI, ENT- oropharynx clear Neck- supple, no JVD Lungs- +diminished BS Heart- regular rhythm; no murmur Abdomen- normal bowel sounds, soft, nontender Extremities- no calf tenderness Neuro- alert, oriented x 3; PERRL, EOMI; no facial palsy; no dysarthria Skin- warm & dry Results & Data Results & [facility]) Vital Signs (Past 12 Hours) Vital Signs Temp Pulse Pulse Pulse Resp BP Pulse Ox 04/28/21 16:00 93 H 04/28/21 15:32 36.7 C 87 20 111/85 95 04/28/21 12:46 77 18 94 04/28/21 11:37 36.8 C 100 H 20 99/74 L 94 04/28/21 09:00 101 H 04/28/21 08:00 59 L 04/28/21 07:33 36.8 C 78 22 135/64 93
[2021-04-29] MEDS: LEVOTHYROXINE SODIUM 175 MCG TABLET PO SCH (05:44)
[2021-04-29] MEDS: INSULIN ASPART PER UNIT SC SCH ×3 (08:17→17:19)
[2021-04-29] MEDS: ASPIRIN 81 MG ECTAB PO SCH (08:23)
[2021-04-29] MEDS: THIAMINE HCL 100 MG TAB PO SCH (08:23)
[2021-04-29] MEDS: MAGNESIUM OXIDE 400 MG TAB PO SCH (08:23)
[2021-04-29] MEDS: PANTOprazole 40 MG TAB PO SCH (08:23)
[2021-04-29] MEDS: FEXOFENADINE HCL 180 MG TAB PO SCH (08:23)
[2021-04-29] MEDS: allopurinoL 300 MG TAB PO SCH (08:23)
[2021-04-29] MEDS: ADVANCED PROBIOTIC 1250 MG CAPSULE PO SCH (08:23)
[2021-04-29] MEDS: guaiFENesin 600 MG TABCR PO SCH (08:23)
[2021-04-29] MEDS: ATORVASTATIN 40 MG TAB PO SCH (08:23)
[2021-04-29] MEDS: FENOFIBRATE NANOCRYSTALLIZED 145 MG TABLET PO SCH (08:23)
[2021-04-29] MEDS: ENOXAPARIN INJ 40 MG/0.4 ML SYR SQ SCH (08:24)
[2021-04-29] MEDS: CEROVITE ADV FORMULA TAB PO SCH (08:24)
[2021-04-29] MEDS: METOPROLOL TARTRATE 100 MG TAB PO SCH (08:24)
[2021-04-29] MEDS: DULoxetine HCL 60 MG CAP PO SCH (08:24)
[2021-04-29] MEDS: FLUTICASONE FUROATE 100MCG 14 PUFFS/INHALER INH SCH (08:24)
[2021-04-29] MEDS: FLUTICASONE PROPIONATE NA SPR 16 GM BTL SCH (08:24)
[2021-04-29 11:39] LABS: C Reactive Protein 3.68 mg/dl (0-0.5)
--- NOTE | 2021-04-29 15:26 | Discharge Summary ---
Date of Service April 29, 2021 Admission HPI Per Admitting Provider CHIEF COMPLAINT: Shortness of breath. HISTORY OF PRESENT ILLNESS: This is a 70-year-old male with past medical history significant for type 2 diabetes, hypothyroidism, hyperlipidemia, allergic rhinitis, severe obstructive sleep apnea, atherosclerosis of aorta, hypertension, history of thoracic aortic aneurysm, history of CAD, GERD, chronic kidney disease stage III, gout arthropathy, spondylosis, depression, who comes because of shortness of breath. The patient states since 6-7 days he is having symptoms with cough, shortness of breath, nausea, vomiting, some diarrhea, mild headache, body aches, feeling weak, not getting better. He came to the ER and was hypoxic at 88% on room air. Chest x-ray shows mild COVID pneumonia and the COVID test came back positive. He was vaccinated with Vicente and Vicente vaccine in July of 2020. Did not receive a booster. He is very hard of hearing and somewhat poor historian. Denies any blurred visions. Has some runny nose, has lot of sore throat. He says appetite is down and he has some pain in the throat. Denies any chest pain, no abdominal pain. Normal bladder movements. Admission Exam Per Admitting Provider GENERAL: The patient is of moderate build, not in acute distress. VITAL SIGNS: Temperature 37.8, pulse 89, respiratory rate 24, blood pressure 162/89, oxygen 93% on 6 liters. HEENT: No pallor, no icterus. Pupils equal, round and reactive to light. Oral mucosa moist. NECK: No JVD, no neck masses. CARDIOVASCULAR: S1 and S2 heard. Regular rate and rhythm. No murmur, no gallop. RESPIRATORY SYSTEM: Normal AP diameter. No accessory muscle use. No wheezing, no crackles. ABDOMEN: Soft, bowel sounds present, nontender, no distention. CENTRAL NERVOUS SYSTEM: Cranial nerves II-XII grossly intact, nonfocal. EXTREMITIES: No edema, no erythema. Principal Diagnosis Pneumonia due to COVID-19 virus: Post-operative state: DMII (diabetes mellitus, type 2): SUMMER (obstructive sleep apnea): Discharge Exam General- No acute distress Head- atraumatic Eyes- PERRL, EOMI, ENT- oropharynx clear Neck- supple, no JVD Lungs- +diminished BS Heart- regular rhythm; no murmur Abdomen- normal bowel sounds, soft, nontender Extremities- no calf tenderness Neuro- alert, oriented x 3; PERRL, EOMI; no facial palsy; no dysarthria Skin- warm & dry Discharge Data Allergies Allergy/AdvReac Type Severity Reaction Status Date / Time No Known Drug Allergies Allergy Verified 02/01/19 11:12 Consultations 04/18/21 20:13 ED Decision to Admit Stat 04/25/21 09:11 Consult Gastroenterology Routine Ordered Studies NM hepatobiliary CLINICAL HISTORY: 70 years-old Male with hx of biliary leak. Acute right upper quadrant abdominal pain with history of cholecystectomy. TECHNIQUE: Sequential anterior abdominal images were obtained through 60 minutes following the intravenous administration of 5.5 mCi of technetium-99m Choletec. COMPARISON: FINDINGS: There is prompt, uniform accumulation of the tracer by the liver. There is normal filling of the intrahepatic ducts, common bile duct and normal excretion of the tracer into the duodenum. The gallbladder is reportedly surgically absent. No extravasation of tracer within the abdominal cavity to suggest a bile leak. A 15 minute anterior image obtained after the patient was lying on their side for 15 minutes demonstrates tracer activity within a drain tube. IMPRESSION: Findings compatible with a bile leak confirmed by tracer activity within the MARIBEL drainage catheter.. ACT 112: Negative or not required by law. The above report was generated using voice recognition software. It may contain grammatical, syntax or spelling errors. Electronically signed by: Darrion Ulrich M.D. 04/23/2021 3:58 PM Dictated:04/23/21 1550 Transcribed: 04/23/21 1551 XR chest 1V portable CLINICAL HISTORY: SEPSIS TECHNIQUE: Single frontal radiograph of the chest was obtained. Comparison: None available at the time of this dictation. FINDINGS: No lines and tubes are seen. Calcified aortic knob is seen. Airspace opacities are seen most prominent in the left lower lung and right upper lung. No evidence of pleural effusion or pneumothorax. IMPRESSION: Multifocal airspace opacities may represent atelectasis, pneumonia, and/or aspiration. ACT 112: Negative or not required by law. Electronically signed by: Arpit Nguyen M.D. 04/18/2021 6:20 PM Dictated:04/18/211818 Transcribed: 04/18/211818 Hospital Course (1) Pneumonia due to COVID-19 virus: Present on admission with worsening shortness of breath New infection since his operation and discharge from the hospital between [place] and . Tested positive for COVID-19 Chest x-ray showed multifocal airspace opacities may represent atelectasis, pneumonia, and/or aspiration. Completed the course of remdesivir on April 22 Continue dexamethasone to complete 10-day course or until discharge Wean off of oxygen supplement and currently saturated well on RA Two-step exercise done today and patient did not require any oxygen supplement Clinically improves significantly (2) Post-operative state: Recently completed a 6-day course of levofloxacin 750 mg p.o. daily and Augmentin twice daily per his surgeon, Dr. Vic Lacey-general surgeon out of [facility]. Pt is s/p laparoscopic cholecystectomy, date unknown with MARIBEL drains in place x3. reports touching base with surgeon outpatient office and they requested a follow-up on Thursday. Currently there is no fever or signs of abdominal pain or infection. He remains on Zosyn and doxycycline. Previous hospitalist contacted patient's surgeon, Dr. Lacey, (his cell phone is [phone]), for update, and guidance regarding MARIBEL drain management versus removal. Reported that patient had severe cholecystitis, cholangitis, gram-negative bacteria found on gallbladder pathology, however patient did finish antibiotic treatment. Patient also had pneumonia. Dr. Lacey recommended to take out one of the drains, that has minimal drainage, #3. The drain was removed on April 22 evening. He also recommended HIDA scan HIDA scan findings compatible with a bile leak confirmed by tracer activity within the MARIBEL drainage catheter Dr. Lacey contacted our staff and suggested for patient to get an ERCP for the bile leak in 1 to 2 weeks ( since pt is COVID 19 positive) [address] Lacey that recommended ERCP in 1 to 2 week with GI GI consulted that recommended to keep MARIBEL drain in place. Continue conservative management for now Completed the course of the antibiotic with Zosyn Will need outpatient follow up with GI for ERCP in 2 weeks Case discussed with Dr. Lacey that will schedule office follow appointment to remove the MARIBEL drain in his office Continue Diet as tolerated. (3) DMII (diabetes mellitus, type 2): Chronic, A1c of 6.5 reflects good control. Continue insulin per inpatient protocol. Continue monitor blood sugar (4) Depression: Chronic, stable, continue duloxetine per home regimen. (5) SUMMER (obstructive sleep apnea): CPAP qHS (6) DVT prophylaxis: Lovenox CODE STATUS Full code Disposition Plan to discharge home with home health during Total Time Total Time Spent Total Time Spent (In Minutes): 40 minutes Discharge Plan Discharge Items Patient Disposition: Home - Home Health Services Reason For Visit: SOB Discharge Diagnosis: Pneumonia due to COVID-19 virus: Post-operative state: DMII (diabetes mellitus, type 2): SUMMER (obstructive sleep apnea): Activity: Resume your previous activity Non-emergency contact: Primary Care Provider, Surgeon and [employer] Call non-emergency contact if: you have any medication questions and your symptoms worsen Follow-up/Referrals: Jamie Ratliff MD [Primary Care Provider] - (Date & Time 05/06/2021 1:00 PM Provider Migdalia Montiel MD Department [facility] ) Diet: Carb Consistent or DM2 Addtl Attending Provider Instructions: Follow up with primary care provider Dr. Migdalia Montiel MD on 05/06/2021 @1:00 PM at the [facility] Follow up with your general Surgeon Dr. Lacey for the drainage removal Follow up with gastroenterology in 1 -2 weeks to arrange for the ERCP Continue to practice social distance and wear mask Seek medical attention if your symptoms worsening Fall precaution Home Isolation COVID-19 Instructions The following information about Home Isolation is from the CDC Website: https://www.cdc.gov/coronavirus/2019-ncov/hcp/dqymrpjl-yvcrnjw-cwzdic.html Stay home except to get medical care People who are mildly ill with COVID-19 are able to isolate at home during their illness. You should restrict activities outside your home, except for getting medical care. Do not go to work, school, or public areas. Avoid using public transportation, ride-sharing, or taxis. Separate yourself from other people and animals in your home People: As much as possible, you should stay in a specific room and away from other people in your home. Also, you should use a separate bathroom, if available. Animals: You should restrict contact with pets and other animals while you are sick with COVID-19, just like you would around other people. Although there have not been reports of pets or other animals becoming sick with COVID-19, it is still recommended that people sick with COVID-19 limit contact with animals until more information is known about the virus. When possible, have another member of your household care for your animals while you are sick. If you are sick with COVID-19, avoid contact with your pet, including petting, snuggling, being kissed or licked, and sharing food. If you must care for your pet or be around animals while you are sick, wash your hands before and after you interact with pets and wear a face mask. Call ahead before visiting your doctor If you have a medical appointment, call the healthcare provider and tell them that you have or may have COVID-19. This will help the healthcare providers office take steps to keep other people from getting infected or exposed. Wear a face mask You should wear a face mask when you are around other people (e.g., sharing a room or vehicle) or pets and before you enter a healthcare providers office. If you are not able to wear a face mask (for example, because it causes trouble breathing), then people who live with you should not stay in the same room with you, or they should wear a face mask if they enter your room. Cover your coughs and sneezes Cover your mouth and nose with a tissue when you cough or sneeze. Throw used tissues in a lined trash can. Immediately wash your hands with soap and water for at least 20 seconds or, if soap and water are not available, clean your hands with an alcohol-based hand belt builder helper that contains at least 60% alcohol. Clean your hands often Wash your hands often with soap and water for at least 20 seconds, especially after blowing your nose, coughing, or sneezing; going to the bathroom; and before eating or preparing food. If soap and water are not readily available, use an alcohol-based hand belt builder helper with at least 60% alcohol, covering all surfaces of your hands and rubbing them together until they feel dry. Soap and water are the best option if hands are visibly dirty. Avoid touching your eyes, nose, and mouth with unwashed hands. Avoid sharing personal household items You should not share dishes, drinking glasses, cups, eating utensils, towels, or bedding with other people or pets in your home. After using these items, they should be washed thoroughly with soap and water. Clean all high-touch surfaces everyday High touch surfaces include counters, tabletops, doorknobs, bathroom fixtures, toilets, phones, keyboards, tablets, and bedside tables. Also, clean any surfaces that may have blood, stool, or body fluids on them. Use a household cleaning spray or wipe, according to the label instructions. Labels contain instructions for safe and effective use of the cleaning product including precautions you should take when applying the product, such as wearing gloves and making sure you have good ventilation during use of the product. Monitor your symptoms Seek prompt medical attention if your illness is worsening (e.g., difficulty breathing).Beforeseeking care, call your healthcare provider and tell them that you have, or are being evaluated for, COVID-19. Put on a face mask before you enter the facility. These steps will help the healthcare providers office to keep other people in the office or waiting room from getting infected or exposed. Ask your healthcare provider to call the local or state health department. Persons who are placed under active monitoring or facilitated self- monitoring should follow instructions provided by their local health department or occupational health professionals, as appropriate. When working with your local health department check their available hours. If you have a medical emergency and need to call 911, notify the dispatch personnel that you have, or are being evaluated for COVID-19. If possible, put on a face mask before emergency medical services arrive. Discontinuing home isolation Patients with confirmed COVID-19 should remain under home isolation precautions until the risk of secondary transmission to others is thought to be low. The decision to discontinue home isolation precautions should be made on a [id number] basis, in consultation with healthcare providers and state and local health departments. Coronavirus disease 2019 (COVID-19) is a virus that causes a respiratory ill ness. It is caused by a coronavirus called 2019 novel coronavirus (2019-nCoV). There are many types of coronavirus. Coronaviruses are a very common cause of bronchitis. They may sometimes cause lung infection(pneumonia). Symptoms can range from mild to severe respiratory illness. These viruses are also foundin some animals. COVID-19 was first found in people in [facility], in late 2018. In 2019, several cases of COVID-19 have been confirmed in the [place] Public health officials are working to find the source. How the virus spreads is not yet fully known. It may be spread through droplets of fluid that a person coughs or sneezes into the air. It may be spread if you touch a surface with virus on it, such as a handle or object, and then touch your mouth. What are the symptoms of COVID-19? Some people have no symptoms or mild symptoms. Symptoms may appear 2 to 14 days after contact with the virus. Symptoms can include: Fever Coughing Trouble breathing What are possible complications from COVID-19? In many cases, this virus can cause infection (pneumonia) in both lungs. In some cases, this can cause . How is COVID-19 diagnosed? Your healthcare provider will ask about your symptoms. He or she will also ask about your recent travel and contact with sick people. Testing for the virus is only done through the [facility]. If yourhealthcare provider thinks you may have COVID- 19, he or she will work with your local health department and the CDC on testing. Follow all instructions from your healthcare provider. COVID-19 is diagnosed by: Nasal and throat swab. A cotton-tipped swab is wiped inside your nose or throat. This is done to check for viruses in your nasal mucus. Sputum culture. A small sample of mucus coughed from your lungs (sputum) is collected if you have a cough. It is checked for the virus. How is COVID-19 treated? There is currently no medicine to treat the virus. Treatment is done to help your body while it fights the virus. This is known as supportive care. Supportive care may include: Pain medicine. These include acetaminophen and ibuprofen. They are used to help ease pain and reduce fever. Bed rest. This helps your body fight the illness. For severe illness, you may need to stay in the hospital. Care during severe illness may include: IV (intravenous) fluids.These are given through a vein to help keep your body hydrated. Oxygen. Supplemental oxygen or ventilation with a breathing machine (ventilator) may be given. This is done to keep enough oxygen in your body. Are you at risk for COVID-19? If youve been to a place where people have been sick with this virus, you are at risk for infection. You are at risk if you: Recently traveled to an affected area Had contact with a sick person who recently traveled to this area Had contact with a person who was diagnosed with COVID-19 How can COVID-19 be prevented? There is no vaccine yet. The best prevention is to not have contact with the virus. The CDC advises that people should not travel to areas where there are COVID-19 outbreaks right now for any reason that is not urgent. To help prevent spreading the infection, wash your hands often, or use an alcohol-basedhand belt builder helper. If you are in an area with COVID-19: Wash your hands often. Or use an alcohol-based hand belt builder helper often. Only touch your eyes, nose, or mouth with clean hands. Dont have contact with people who are sick. Follow local instructions about being in public. For example, you may be told to not use public transport for a period of time. Stay away from markets that have live or animals. Wash your hands after touching any animals. Don't touch animals that may be sick. Dont share eating or drinking tools with sick people. Dont kiss someone who is sick. Clean surfaces often with disinfectant. If you were in an area with COVID-19 in the last 14 days: Call your healthcare provider. He or she can talk with local health staff to see what action may be needed. Follow all instructions from your provider. Take your temperature every morning and evening for at least 14 days. This is to check for fever. Keep a record of the readings. Keep watch for symptoms of the virus. Tell your provider right away if you have symptoms. If you were in an area with COVID-19 and have a fever or other symptoms: Dont panic. Keep in mind that other illnesses can cause similar symptoms. Stay away from work, school, and public places. Limit physical contact with family members. Don't kiss anyone or share eating or drinking utensils. Clean surfaces you touch with disinfectant. This is to help prevent the virus from spreading. Call your healthcare provider. Explain that you have been exposed to COVID-19 and have symptoms. Do this before going to any hospital. Wait for instructions. Keep in mind that healthcare staff may wear protective equipment such as masks, gowns, gloves, and eye protection. You may be put in a separate room. This is to prevent the possible virus from spreading. Tell the healthcare staff about recent travel. This includes local travel on public transport. Staff may need to find other people you have been in contact with. Follow all instructions the healthcare staff give you. If you have been diagnosed with COVID-19 Follow all instructions from your healthcare provider. Dont leave your home, except to get medical care. Call your healthcare providers office before going. They can prepare and give you instructions. This will help prevent the virus from spreading. Dont go to work, school, or public areas. Dont use public transport or taxis. Stay away from other people in your home. Have them wear face masks around you. Dont share household items or food. Wear a face mask if you can. This includes at home or in a medical facility. Cover your face with a tissue when you cough or sneeze. Throw the tissue away. Wash your hands. Wash your hands often. Caregivers should: Follow all instructions from healthcare staff. Wear a face mask and protective clothing as advised. Wash hands often. Keep track of the sick persons symptoms. Clean surfaces, fabrics, and laundry thoroughly. Keep other people away from the sick person. When to call your healthcare provider Call your healthcare provider: If youve recently traveled and have symptoms If you have been diagnosed with COVID-19 and your symptoms are worse To learn more To find out more about COVID-19, visit the CDC website at www.cdc.gov/coronavirus/2019-ncov/index.html. 2111-[address] [employer] [place] [address]. All rights reserved. This information is not intended as a substitute for professional medical care. Always follow your healthcare professional's instructions. This information has been adapted from [employer] Pending Studies at Discharge: No Stand-Alone Forms: My [employer], Smoking Cessation Medications and DC Order Prescriptions: New guaifenesin 200 mg tablet 200 mg PO TID PRN (Reason: cough) Qty: 30 RF: 0 Continued fexofenadine 180 mg tablet 180 mg PO DAILY RF: 0 allopurinol 300 mg tablet 300 mg PO DAILY RF: 0 aspirin 81 mg tablet,delayed release (DR/EC) 81 mg PO DAILY RF: 0 fenofibrate nanocrystallized 145 mg tablet 145 mg PO DAILY Qty: 90 RF: 0 fluticasone propionate 50 mcg/actuation spray,suspension 2 sprays intranasal DAILY RF: 0 metoprolol tartrate 100 mg tablet 100 mg PO BID RF: 0 omeprazole 20 mg tablet,delayed release (DR/EC) 20 mg PO DAILY RF: 0 levothyroxine [Synthroid] 175 mcg tablet 175 mcg PO .COMPLEX RF: 0 duloxetine 60 mg capsule,delayed release(DR/EC) 60 mg PO DAILY RF: 0 sildenafil 100 mg tablet 100 mg PO DAILY PRN (Reason: Other) RF: 0 sulindac 200 mg tablet 200 mg PO BID RF: 0 atorvastatin 40 mg tablet 40 mg PO DAILY RF: 0 metformin 1,000 mg tablet 1,000 mg PO BIDM RF: 0 oxycodone 5 mg tablet 5 mg PO Q4 PRN (Reason: Pain) RF: 0 Discontinued levofloxacin 750 mg tablet 750 mg PO DAILY RF: 0 amoxicillin-pot clavulanate 875-125 mg tablet 1 tab PO BID RF: 0 Discharge Orders: Discharge Order (Routine); Ordered 04/29/21 Ordered By: Francis Dai/Other Patient Handouts: A1C, Managing Type 2 Diabetes Admission Data Admit Date/Time: 04/18/21 21:22 Attending Provider: Francis Ocasio Admit Provider: Jerome Hamilton Primary Care Provider: Jamie Ratliff Other Providers: Jerome Hamilton ; Norma Mott ; Kirt Pickering ; Cirilo Buchanan Other Interventions: Discharge Summary Assessment (RN) Last Done: 04/29/21 16:31
== END 2021-04-29 18:24 | disposition home health service (06) | DRG 177 ==
LOC: ED 17:31 → SUATTDRO 21:22 → EDINP 21:22 → 2E 23:05 → 2S 04-29 11:15